=== PATIENT | male | born 1970 | race Caucasian/White ===

== ENCOUNTER 2018-04-18 23:11 | Emergency (ER) | END 2018-04-19 01:46 | disposition home or self-care (01) ==

== ENCOUNTER 2019-04-23 11:21 | Inpatient (IN) | payer BC, OTHER ==
[~2019-04-23] VITALS: Ht 167.6 cm; Wt 99.4 kg
[~2019-04-23 11:21] MED LIST: HYDR-3672 PO
--- NOTE | 2019-04-23 11:54 | ERD ---
ER Documentation Chief Complaint Chief Complaint ABDOMINAL PAIN HPI The patient is a 48-year-old male, presenting to the ER because of sudden onset of left flank pain radiating to the left sided abdomen began around 4 AM, denies similar symptoms previously, complains of vomiting of mostly mucus, denies hematemesis/hematochezia around 8 AM, denies fever, chills, neck pain, chest pain, dyspnea, complains of painful urination since 4 AM, complains of constipation. He does not smoke nor drink or does illicit drug Past medical history: Hypertension Past surgical history: Appendectomy ROS All systems reviewed and are negative except as per history of present illness. Medications Home Meds Discontinued Scripts Hydralazine Hcl* (Hydralazine Hcl*) 50 Mg Tab, 50 MG PO Q6H PRN for ELEVATED SYSTOLIC BP, #60 TAB Prov:MILLY ZIMMERSelvin 04/19/18 Allergies Allergies: Coded Allergies: No Known Allergy (Unverified , 04/23/19) PMhx/Soc Hx Cardiac Disorders: Yes (HTN) Hx Alcohol Use: Yes Hx Substance Use: No Hx Tobacco Use: No Physical Exam Vitals Vital Signs Date Temp Pulse Resp B/P (MAP) Pulse Ox O2 O2 Flow FiO2 Time Delivery Rate 04/23/19 98.4 65 20 189/102 98 Room Air 13:22 (131) 04/23/19 98.4 73 20 218/128 99 Room Air 12:16 (158) 04/23/19 98.4 74 20 247/127 99 11:33 (167) Physical Exam Const: No acute distress. Head: Atraumatic. Eyes: Normal Conjunctiva. ENT: Normal External Ears, Nose and Mouth. Neck: Full range of motion. No meningismus. Resp: Clear to auscultation bilaterally. Cardio: Regular rate and rhythm. Abd: Soft, non distended, normal bowel sounds, mild left flank/left lower quadrant tenderness. No rigidity/rebound/CVA tenderness Skin: No petechiae or rashes. Back: No midline or flank tenderness. Ext: No cyanosis, or edema. Neur: Awake and alert. No focal deficit Psych: Normal Mood and Affect. Result Diagram: 04/23/19 1205 04/23/19 1205 Results 24 hrs Laboratory Tests Test 04/23/19 12:05 04/23/19 12:51 White Blood Count 14.0 10^3/ul Red Blood Count 4.83 10^6/ul Hemoglobin 14.5 g/dl Hematocrit 41.8 % Mean Corpuscular Volume 86.5 fl Mean Corpuscular Hemoglobin 30.0 pg Mean Corpuscular Hemoglobin Concent 34.7 g/dl Red Cell Distribution Width 12.5 % Platelet Count 268 10^3/UL Mean Platelet Volume 10.3 fl Immature Granulocytes % 0.500 % Neutrophils % 82.5 % Lymphocytes % 11.9 % Monocytes % 4.7 % Eosinophils % 0.2 % Basophils % 0.2 % Nucleated Red Blood Cells % 0.0 /100WBC Immature Granulocytes # 0.070 10^3/ul Neutrophils # 11.5 10^3/ul Lymphocytes # 1.7 10^3/ul Monocytes # 0.7 10^3/ul Eosinophils # 0.0 10^3/ul Basophils # 0.0 10^3/ul Nucleated Red Blood Cells # 0.0 10^3/ul Sodium Level 143 mmol/L Potassium Level 4.1 mmol/L Chloride Level 105 mmol/L Carbon Dioxide Level 27 mmol/L Anion Gap 11 Blood Urea Nitrogen 19 mg/dl Creatinine 1.40 mg/dl Est Glomerular Filtrat Rate mL/min 54 mL/min Glucose Level 138 mg/dl Calcium Level 9.1 mg/dl Total Bilirubin 0.3 mg/dl Direct Bilirubin 0.00 mg/dl Indirect Bilirubin 0.3 mg/dl Aspartate Amino Transf (AST/SGOT) 32 IU/L Alanine Aminotransferase (ALT/SGPT) 33 IU/L Alkaline Phosphatase 93 IU/L Total Protein 8.3 g/dl Albumin 4.7 g/dl Globulin 3.60 g/dl Albumin/Globulin Ratio 1.30 Lipase 69 U/L Bedside Urine pH (LAB) 7.0 Bedside Urine Protein (LAB) 1+ Bedside Urine Glucose (UA) 0.1% Bedside Urine Ketones (LAB) Negative Bedside Urine Blood 2+ Bedside Urine Nitrite (LAB) Negative Bedside Urine Leukocyte Esterase (L Negative Current Medications Medications Dose Sig/Misael Start Time Status Last (Trade) Ordered Route PRN Stop Time Admin Dose Reason Admin Ondansetron 4 mg ONCE STAT 04/23/19 DC 04/23/19 HCl (Zofran IV 12:01 12:12 Inj) 04/23/19 12:04 Morphine 4 mg ONCE STAT 04/23/19 DC 04/23/19 Sulfate IV 12:01 12:15 (morphine) 04/23/19 12:04 Ketorolac 30 mg ONCE STAT 04/23/19 DC Tromethamine IV 12:53 (Toradol) 04/23/19 13:00 Morphine 4 mg ONCE STAT 04/23/19 DC 04/23/19 Sulfate IV 12:54 13:00 (morphine) 04/23/19 12:55 Labetalol 10 mg ONCE ONCE 04/23/19 DC 04/23/19 HCl IV 13:30 13:35 (Labetalol) 04/23/19 13:31 Procedures/[place] [address] Radiology Main Line: [phone] DIAGNOSTIC IMAGING REPORT Patient: ANDREW PANDYA : 1970 Age: 48 Sex: M MR #: [id number] DOS: 04/23/19 1201 Ordering MD: JOSE LUIS EMMANUEL MD Location: E/R Room/Bed: PROCEDURE: CT ABDOMEN AND PELVIS WITHOUT CONTRAST. CLINICAL INDICATION: Left-sided flank pain TECHNIQUE: CT scan of the abdomen and pelvis without contrast was performed on a multidetector high-resolution CT scanner. The patient was scanned without intravenous contrast. Coronal and sagittal reformatted images were obtained from the axial source images. Images were reviewed on a high-resolution PACS workstation. The total exam CTDI equals 19.7 mGy and the total exam DLP equals 1221.2 mGy-cm. One or more of the following dose reduction techniques were used: Automated exposure control. Adjustment of the mA and/or kV according to patient size. Use of iterative reconstruction technique. DICOM images are available COMPARISON: None FINDINGS: CT abdomen: The lung bases are clear. The heart size is within normal limits. There is no significant pericardial effusion. Hepatic morphology is within normal limits. No gross contour deforming masses. The gallbladder is within normal limits. No evidence of intrahepatic or extrahepatic biliary dilatation. The spleen and pancreas are within normal limits. Both adrenal glands are within normal limits. Both kidneys are in anatomic position. The left kidney is enlarged and there is left-sided hydroureteronephrosis, secondary to a large 7.2 mm stone within left UVJ. Left perinephric fat stranding noted. Punctate additional nonobstructing stones are noted with left kidney. Several nonobstructing stones are noted within the right kidney, with the largest measuring up to 4.6 mm. No right-sided ureteric calculi or obstructive uropathy. The visualized GI tract demonstrate normal caliber loops of small and large bowel. No evidence of bowel obstruction. Stool filled loops of large bowel suggestive of constipation. The unenhanced aorta is unremarkable. No significant retroperitoneal lymphaden opathy. CT pelvis: The bladder is within normal limits. Prostate gland is normal size. Rectosigmoid colon demonstrates stool. No significant free fluid. No pelvic lymphadenopathy. The visualized osseous structures appears to be within normal limits. IMPRESSION: 1. ENLARGED LEFT KIDNEY WITH LEFT-SIDED MILD TO MODERATE HYDROURETERONEPHROSIS, SECONDARY TO A LARGE 7.2 MM STONE WITHIN THE LEFT UVJ. THERE IS ASSOCIATED LEFT PERINEPHRIC FATTY STRANDING. Several additional punctate nonobstructing stones are noted within left kidney. 2. Several right-sided nonobstructing renal stones, with the largest measuring up to 4.6 mm. No evidence of right-sided obstructive uropathy. 3. No evidence of bowel obstruction. Stool filled loops of large bowel suggestive of constipation. 4. No evidence of free fluid or free air. No gross focal fluid collections. RPTAT: AAPP Physician Bell Date Time Electronically viewed and signed by Physician Bell on 04/23/2019 12:57 JL/ CC: JOSE LUIS EMMANUEL MD [id number] [place] [id number] Radiology Main Line: [phone] DIAGNOSTIC IMAGING REPORT Patient: ANDREW PANDYA : 1970 Age: 48 Sex: M MR #: [id number] DOS: 04/23/19 1201 Ordering MD: JOSE LUIS EMMANUEL MD Location: E/R Room/Bed: PROCEDURE: XR Chest. CLINICAL INDICATION: Abdominal Pain TECHNIQUE: PA and Lateral views of the chest were obtained. COMPARISON: None. FINDINGS: The cardiomediastinal silhouette is within normal limits. The lungs are clear. No signs of pleural fluid or pneumothorax are seen. The osseous structures and soft tissues are unremarkable. IMPRESSION: No evidence for active cardiopulmonary disease. Physician Shanell Date Time Electronically viewed and signed by Ivone Dial Physician on 04/23/2019 12:45 RD/ CC: JOSE LUIS EMMANUEL MD [id number] EKG: Read by emergency physician Rate/Rhythm: Normal Sinus Rhythm 74 beats/min QRS, ST, T-waves: No ST elevation, no T inversion, LVH, inferolateral ST abnormality Impression: Abnormal EKG Urine culture requested Consultation: I discussed the patient with the on-call urologist Dr. Cage at 1:10 PM, who was made aware of the lab, the treatment, the patient condition and he accepted the consult MEDICAL MAKING DECISION: The patient is a 48-year-old male with left ureteral lithiasis with moderate left hydroureteronephrosis, acute hypertensive urgency. He was treated with morphine 4 mg IV times 2, Toradol 30 mg IV for pain, Zofran 4 mg IV for nausea, labetalol 10 mg IV for acute hypertensive urgency with good response. The differential diagnoses considered include but are not limited to cholelithiasis, cholecystitis, choledocholithiasis, cholangitis, pancreatitis, hepatitis, gastritis, peptic ulcer disease, gastric ulcer, appendicitis, cystitis, diverticulitis, partial small bowel obstruction. Departure Diagnosis: Primary Impression: Ureterolithiasis Additional Impressions: Hydroureteronephrosis Hypertensive urgency Renal insufficiency Condition: Stable Comments I discussed the findings with the patient. I discussed the patient with the hospitalist, who was made aware of the lab, the treatment, the patient condition. The patient is admitted to [facility] Disclaimer: Inadvertent spelling and grammatical errors are likely due to EHR/dictation software use and do not reflect on the overall quality of patient care. Also, please note that the electronic time recorded on this note does not necessarily reflect the actual time of the patient encounter. JOSE LUIS EMMANUEL MD Apr 23, 2019 11:54
[2019-04-23] MEDS ORDERED: morphine 4 MG/ML VIAL IV STA ×2 (12:01→12:54)
[2019-04-23] MEDS ORDERED: ONDANSETRON 4 MG INJ IV STA (12:01)
[2019-04-23] MEDS ORDERED: KETOROLAC 30 MG INJ IV STA (12:53)
[2019-04-23] MEDS ORDERED: LABETALOL HCL 20MG INJ IV ONE (13:30)
[2019-04-23] MEDS ORDERED: morphine 2 MG INJ IV PRN (14:30)
[2019-04-23] MEDS ORDERED: MAGNESIUM HYDROXIDE 30ML CUP PO PRN (14:30)
[2019-04-23] MEDS ORDERED: ACETAMINOPHEN 325 MG TAB PO PRN (14:30)
[2019-04-23] MEDS ORDERED: ACETAMINOPHEN 650 MG SUPP PR PRN (14:30)
[2019-04-23] MEDS ORDERED: DOCUSATE SODIUM 100 MG CAP PO PRN (14:30)
[2019-04-23] MEDS ORDERED: NACL 0.9% 3 ML SYG IV SCH (14:30)
[2019-04-23] MEDS ORDERED: BISACODYL 10 MG SUPP PR PRN (14:30)
[2019-04-23] MEDS ORDERED: HYDROCODONE/APAP (5/325) TAB PO PRN (14:30)
[2019-04-23] MEDS ORDERED: hydrALAzine 20 MG INJ ONE (15:43)
[2019-04-23] MEDS: hydrALAzine 20 MG INJ IV PRN (15:45)
--- NOTE | 2019-04-23 16:16 | HP ---
Date/Time of Note Date/Time of Note DATE: 04/23/19 TIME: 16:09 Assessment/Plan VTE Prophylaxis SCD applied (from Nsg): Yes Pharmacological prophylaxis: NA/contraindicated Pharm contraindication: low risk/ambulating Lines/Catheters IV Catheter Type (from Nrsg): Saline Lock Assessment/Plan Hospital Course Assessment and plan 1. Enlarged left renal stone with moderate hydroureteronephrosis. Urology is consulted. Continue with analgesics. On IV hydration. Monitor renal panel. 2. Acute on suspect chronic kidney disease. Likely secondary to #1. Route Aide consulted. Monitor renal panel. Correct electrolytes as needed. 3. Hypertension. Will start patient on antihypertensives. Likely also aggravated by pain from a large renal stone. Provide with analgesics as needed. 4. Obesity. Weight reduction to be advised Discussed POC with Dr. Olivas Result Diagram: 04/23/19 1205 04/23/19 1205 Results 24hrs Laboratory Tests Test 04/23/19 12:05 04/23/19 12:51 White Blood Count 14.0 #H Red Blood Count 4.83 Hemoglobin 14.5 Hematocrit 41.8 L Mean Corpuscular Volume 86.5 Mean Corpuscular Hemoglobin 30.0 Mean Corpuscular Hemoglobin Concent 34.7 Red Cell Distribution Width 12.5 Platelet Count 268 Mean Platelet Volume 10.3 Immature Granulocytes % 0.500 H Neutrophils % 82.5 H Lymphocytes % 11.9 L Monocytes % 4.7 Eosinophils % 0.2 Basophils % 0.2 Nucleated Red Blood Cells % 0.0 Immature Granulocytes # 0.070 H Neutrophils # 11.5 H Lymphocytes # 1.7 Monocytes # 0.7 Eosinophils # 0.0 Basophils # 0.0 Nucleated Red Blood Cells # 0.0 Sodium Level 143 Potassium Level 4.1 Chloride Level 105 Carbon Dioxide Level 27 Anion Gap 11 Blood Urea Nitrogen 19 Creatinine 1.40 H Est Glomerular Filtrat Rate mL/min 54 L Glucose Level 138 Calcium Level 9.1 Total Bilirubin 0.3 Direct Bilirubin 0.00 Indirect Bilirubin 0.3 Aspartate Amino Transf (AST/SGOT) 32 Alanine Aminotransferase (ALT/SGPT) 33 Alkaline Phosphatase 93 Total Protein 8.3 H Albumin 4.7 Globulin 3.60 H Albumin/Globulin Ratio 1.30 Lipase 69 Bedside Urine pH (LAB) 7.0 Bedside Urine Protein (LAB) 1+ H Bedside Urine Glucose (UA) 0.1% H Bedside Urine Ketones (LAB) Negative Bedside Urine Blood 2+ H Bedside Urine Nitrite (LAB) Negative Bedside Urine Leukocyte Esterase (L Negative HPI/ROS Admit Date/Time Admit Date/Time Apr 23, 2019 at 14:02 Hx of Present Illness This is a 48-year-old male with only reported past medical history of appendectomy, hypertension, came to [facility] due to reports of increased left flank pain. Patient reports that he started to have left flank pain starting this morning. He reports also having some associated dysuria. She reports the pain is on the left flank and radiates to his front pelvic area. He did come to the hospital for further evaluation. On examination he had a white count of 14.0. Urinalysis was not very suggestive of UTI. Did have abdominal pelvic imaging that did show and have enlarged left ki dney with left-sided mild to moderate hydroureteronephrosis secondary to large 7.2 mm stone within the left UVJ. There is also associated left perinephric fatty stranding. Patient denies any fevers. He does report however he has been having urinary frequency for a long time (exact duration unknown). Reports he only takes medication at home for his hypertension and to his knowledge the only known medical issue he has is hypertension. Of note his creatinine was also seen elevated at 1.4. We will evaluate him for the aformentiond issues. ROS 12 point review of systems obtained entirely negative except as mentioned in the history of present illness PMH/Family/Social Past Medical History Medical/surgical history 1. Appendectomy 2. Hypertension Medications Current Medications Sodium Chloride 1,000 ml @ 80 mls/hr [id number] IV ; Start 04/23/19 at 14:29 IV Flush (NS 3 ml) 3 ml PER PROTOCOL IV ; Start 04/23/19 at 14:30 Ondansetron HCl (Zofran Inj) 4 mg Q6H PRN IV NAUSEA/VOMITING; Start 04/23/19 at 14:30 Acetaminophen (Tylenol Tab) 650 mg Q6H PRN PO .PAIN 1-3 OR TEMP; Start 04/23/19 at 14:30 Acetaminophen (Tylenol Supp) 650 mg Q6H PRN [place] .PAIN 1-3 OR TEMP; Start 04/23/19 at 14:30 Acetaminophen/ Hydrocodone Bitart ([place] (5/325)) 1 tab Q6H PRN PO .MOD PAIN 4- 6; Start 04/23/19 at 14:30 Morphine Sulfate (morphine) 2 mg Q4H PRN IV .SEVERE PAIN 7-10; Start 04/23/19 at 14:30 Docusate Sodium (Colace) 100 mg Q12H PRN PO .CONSTIPATION; Start 04/23/19 at 14:30 Magnesium Hydroxide (Milk Of Mag) 30 ml DAILY PRN PO .CONSTIPATION; Start 04/23/19 at 14:30 Bisacodyl (Dulcolax Supp) 10 mg DAILY PRN [place] .CONSTIPATION; Start 04/23/19 at 14:30 Famotidine (Pepcid Iv) 20 mg DAILY IV ; Start 04/23/19 at 15:00 Hydralazine HCl (Apresoline) 10 mg Q4H PRN IV sbp>160 Last administered on 04/23/19at 15:45; Admin Dose 10 MG; Start 04/23/19 at 14:30 Hydromorphone HCl (Dilaudid) 1 mg Q3H PRN IV SEVERE PAIN LEVEL 7-10; Start 04/23/19 at 16:30; Status UNV Coded Allergies: No Known Allergy (Unverified , 04/23/19) Family History Significant Family History: no pertinent family hx Social History Alcohol Use: none Smoking Status: Never smoker Drug Use: none Exam/Review of Systems Vital Signs Vitals Vital Signs Date Temp Pulse Resp B/P (MAP) Pulse Ox O2 O2 Flow FiO2 Time Delivery Rate 04/23/19 58 16 173/97 96 Room Air 15:20 (122) 04/23/19 98.4 13:22 Exam Constitutional: alert, oriented Head: normocephalic Neck: supple, non-tender Respiratory: clear to auscultation Cardiovascular: regular rate and rhythm Gastrointestinal: soft, tender (left flank) Neurological: PRACTICE ASSISTANT II-XII intact, nl mental status, nl speech REGIDORJUDI NP Apr 23, 2019 16:16
[2019-04-23] MEDS ORDERED: ONDANSETRON 4 MG INJ ONE (17:01)
[2019-04-23] MEDS ORDERED: HYDROmorphONE 1 MG/ML SYG ONE (17:02)
[2019-04-23] MEDS: HYDROmorphONE 1 MG/ML SYG IV PRN (17:02)
[2019-04-23] MEDS: ONDANSETRON 4 MG INJ IV PRN (17:02)
[2019-04-23 18:09] VITALS: BP 180/96; PULSE 70; RESP 18; Ht 167.6 cm; Wt 99.4 kg
[2019-04-23 18:18] VITALS: BP 170/93; PULSE 68
[2019-04-23] MEDS: SOD CHLORIDE 0.9% 1,000 ML IV SCH (18:32)
[2019-04-23] MEDS: FAMOTIDINE 20 MG INJ IV SCH (18:33)
--- NOTE | 2019-04-23 18:38 | CONS ---
Assessment/Plan Assessment/Plan Hospital Course (Demo Recall) 48-year-old male presented to the emergency room with severe left flank pain with nausea and vomiting. He also had constant urge to urinate and urinate small amount. He underwent a CT scan of the abdomen and pelvis and that showed a 7.2 mm stone within the left ureterovesical junction. Denies any prior history of kidney stones. There is no fever or chills and no gross hematuria. Since the stone is just at the ureterovesical junction we will give him the chance and see if he is able to pass it. Strain the urine, give him pain medications and tamsulosin and do a KUB so we could follow the movement of the stone. If his pain persist and he does not pass it and he continues to have pain we could do cystoscopy and left ureteroscopy and laser lithotripsy and inserted JJ stent. Consultation Date/Type/Reason Admit Date/Time Apr 23, 2019 at 14:02 Date of Consultation: Apr 23, 2019 Type of Consult Urology Reason for Consultation Distal left ureteral stone Requesting Provider: JOSE LUIS EMMANUEL MD Date/Time of Note DATE: 04/23/19 TIME: 18:29 Hx of Present Illness 48-year-old male presented to the emergency room with severe left flank pain with nausea and vomiting. He also had constant urge to urinate and urinate small amount. He underwent a CT scan of the abdomen and pelvis and that showed a 7.2 mm stone within the left ureterovesical junction. Denies any prior history of kidney stones. There is no fever or chills and no gross hematuria. Constitutional: no complaints Eyes: no complaints ENT: no complaints Respiratory: no complaints; No shortness of breath Cardiovascular: no complaints; No chest pain Gastrointestinal: pain (Left lower quadrant), nausea Genitourinary: flank pain (Left side) Musculoskeletal: no complaints Skin: no complaints Neurologic: no complaints Endocrine: no complaints Lymphatic: no complaints Past Medical History Medical History: high cholesterol, hypertension Home Meds Discontinued Scripts Hydralazine Hcl* (Hydralazine Hcl*) 50 Mg Tab, 50 MG PO Q6H PRN for ELEVATED SYSTOLIC BP, #60 TAB Prov:MILLY ZIMMER 04/19/18 Medications Current Medications Sodium Chloride 1,000 ml @ 80 mls/hr [id number] IV ; Start 04/23/19 at 14:29 IV Flush (NS 3 ml) 3 ml PER PROTOCOL IV ; Start 04/23/19 at 14:30 Ondansetron HCl (Zofran Inj) 4 mg Q6H PRN IV NAUSEA/VOMITING Last administered on 04/23/19at 17:02; Admin Dose 4 MG; Start 04/23/19 at 14:30 Acetaminophen (Tylenol Tab) 650 mg Q6H PRN PO .PAIN 1-3 OR TEMP; Start 04/23/19 at 14:30 Acetaminophen (Tylenol Supp) 650 mg Q6H PRN [place] .PAIN 1-3 OR TEMP; Start 04/23/19 at 14:30 Acetaminophen/ Hydrocodone Bitart ([place] (5/325)) 1 tab Q6H PRN PO .MOD PAIN 4- 6; Start 04/23/19 at 14:30 Morphine Sulfate (morphine) 2 mg Q4H PRN IV .SEVERE PAIN 7-10; Start 04/23/19 at 14:30 Docusate Sodium (Colace) 100 mg Q12H PRN PO .CONSTIPATION; Start 04/23/19 at 14:30 Magnesium Hydroxide (Milk Of Mag) 30 ml DAILY PRN PO .CONSTIPATION; Start 04/23/19 at 14:30 Bisacodyl (Dulcolax Supp) 10 mg DAILY PRN [place] .CONSTIPATION; Start 04/23/19 at 14:30 Famotidine (Pepcid Iv) 20 mg DAILY IV ; Start 04/23/19 at 15:00 Hydralazine HCl (Apresoline) 10 mg Q4H PRN IV sbp>160 Last administered on 04/23/19at 15:45; Admin Dose 10 MG; Start 04/23/19 at 14:30 Hydromorphone HCl (Dilaudid) 1 mg Q3H PRN IV SEVERE PAIN LEVEL 7-10 Last administered on 04/23/19at 17:02; Admin Dose 1 MG; Start 04/23/19 at 16:30 Amlodipine Besylate (Norvasc) 5 mg BID PO ; Start 04/23/19 at 21:00 Clonidine (Catapres) 0.1 mg Q4H PRN PO sbp>160 Last administered on 04/23/19at 16:59; Admin Dose 0.1 MG; Start 04/23/19 at 16:30 Tamsulosin HCl (Flomax) 0.4 mg HS PO ; Start 04/23/19 at 21:00 Allergies: Coded Allergies: No Known Allergy (Unverified , 04/23/19) Past Surgical History Past Surgical Hx: appendectomy, other (History of fracture penis) Social History Alcohol Use: none Smoking Status: Never smoker Drug Use: none Exam/Review of Systems Exam Vitals Vital Signs Date Temp Pulse Resp B/P (MAP) Pulse Ox O2 O2 Flow FiO2 Time Delivery Rate 04/23/19 68 170/93 18:18 (118) 04/23/19 98.2 18 97 Room Air 18:09 Constitutional: alert, oriented Psych: no complaints Head: normocephalic Eyes: nl conjunctiva ENMT: nl external ears & nose Neck: supple, non-tender Respiratory: normal air movement; No wheezing Cardiovascular: regular rate and rhythm Gastrointestinal: soft, tender (Left lower quadrant) Genitourinary - Male: nl penis, nl scrotum, CVA tenderness (Left side) Extremities: No calf tenderness Neurological: nl mental status Results Result Diagram: 04/23/19 1205 04/23/19 1205 Results 24hrs Laboratory Tests Test 04/23/19 12:05 04/23/19 12:51 White Blood Count 14.0 #H Red Blood Count 4.83 Hemoglobin 14.5 Hematocrit 41.8 L Mean Corpuscular Volume 86.5 Mean Corpuscular Hemoglobin 30.0 Mean Corpuscular Hemoglobin Concent 34.7 Red Cell Distribution Width 12.5 Platelet Count 268 Mean Platelet Volume 10.3 Immature Granulocytes % 0.500 H Neutrophils % 82.5 H Lymphocytes % 11.9 L Monocytes % 4.7 Eosinophils % 0.2 Basophils % 0.2 Nucleated Red Blood Cells % 0.0 Immature Granulocytes # 0.070 H Neutrophils # 11.5 H Lymphocytes # 1.7 Monocytes # 0.7 Eosinophils # 0.0 Basophils # 0.0 Nucleated Red Blood Cells # 0.0 Sodium Level 143 Potassium Level 4.1 Chloride Level 105 Carbon Dioxide Level 27 Anion Gap 11 Blood Urea Nitrogen 19 Creatinine 1.40 H Est Glomerular Filtrat Rate mL/min 54 L Glucose Level 138 Calcium Level 9.1 Total Bilirubin 0.3 Direct Bilirubin 0.00 Indirect Bilirubin 0.3 Aspartate Amino Transf (AST/SGOT) 32 Alanine Aminotransferase (ALT/SGPT) 33 Alkaline Phosphatase 93 Total Protein 8.3 H Albumin 4.7 Globulin 3.60 H Albumin/Globulin Ratio 1.30 Lipase 69 Bedside Urine pH (LAB) 7.0 Bedside Urine Protein (LAB) 1+ H Bedside Urine Glucose (UA) 0.1% H Bedside Urine Ketones (LAB) Negative Bedside Urine Blood 2+ H Bedside Urine Nitrite (LAB) Negative Bedside Urine Leukocyte Esterase (L Negative Imaging Imaging CT scan of the abdomen and pelvis: 1. ENLARGED LEFT KIDNEY WITH LEFT-SIDED MILD TO MODERATE HYDROURETERONEPHROSIS, SECONDARY TO A LARGE 7.2 MM STONE WITHIN THE LEFT UVJ. THERE IS ASSOCIATED LEFT PERINEPHRIC FATTY STRANDING. Several additional punctate nonobstructing stones are noted within left kidney. 2. Several right-sided nonobstructing renal stones, with the largest measuring up to 4.6 mm. No evidence of right-sided obstructive uropathy. 3. No evidence of bowel obstruction. Stool filled loops of large bowel suggestive of constipation. 4. No evidence of free fluid or free air. No gross focal fluid collections. Medications Medication Current Medications Sodium Chloride 1,000 ml @ 80 mls/hr [id number] IV ; Start 04/23/19 at 14:29 IV Flush (NS 3 ml) 3 ml PER PROTOCOL IV ; Start 04/23/19 at 14:30 Ondansetron HCl (Zofran Inj) 4 mg Q6H PRN IV NAUSEA/VOMITING Last administered on 04/23/19at 17:02; Admin Dose 4 MG; Start 04/23/19 at 14:30 Acetaminophen (Tylenol Tab) 650 mg Q6H PRN PO .PAIN 1-3 OR TEMP; Start 04/23/19 at 14:30 Acetaminophen (Tylenol Supp) 650 mg Q6H PRN [place] .PAIN 1-3 OR TEMP; Start 04/23/19 at 14:30 Acetaminophen/ Hydrocodone Bitart ([place] (5/325)) 1 tab Q6H PRN PO .MOD PAIN 4- 6; Start 04/23/19 at 14:30 Morphine Sulfate (morphine) 2 mg Q4H PRN IV .SEVERE PAIN 7-10; Start 04/23/19 at 14:30 Docusate Sodium (Colace) 100 mg Q12H PRN PO .CONSTIPATION; Start 04/23/19 at 14:30 Magnesium Hydroxide (Milk Of Mag) 30 ml DAILY PRN PO .CONSTIPATION; Start 04/23/19 at 14:30 Bisacodyl (Dulcolax Supp) 10 mg DAILY PRN [place] .CONSTIPATION; Start 04/23/19 at 14:30 Famotidine (Pepcid Iv) 20 mg DAILY IV ; Start 04/23/19 at 15:00 Hydralazine HCl (Apresoline) 10 mg Q4H PRN IV sbp>160 Last administered on 04/23at 15:45; Admin Dose 10 MG; Start 04/23/19 at 14:30 Hydromorphone HCl (Dilaudid) 1 mg Q3H PRN IV SEVERE PAIN LEVEL 7-10 Last administered on 04/23/19at 17:02; Admin Dose 1 MG; Start 04/23/19 at 16:30 Amlodipine Besylate (Norvasc) 5 mg BID PO ; Start 04/23/19 at 21:00 Clonidine (Catapres) 0.1 mg Q4H PRN PO sbp>160 Last administered on 04/23/19at 16:59; Admin Dose 0.1 MG; Start 04/23/19 at 16:30 Tamsulosin HCl (Flomax) 0.4 mg HS PO ; Start 04/23/19 at 21:00 VENANCIO HILL MD Apr 23, 2019 18:38
[2019-04-23] MEDS ORDERED: CEFTRIAXONE 1 GM INJ IVPB SCH (19:30)
[2019-04-23 20:00] VITALS: BP 177/98; PULSE 70; RESP 18
[2019-04-23] MEDS: CEFTRIAXONE 1 GM/NS 50 ML IVPB SCH (20:07)
[2019-04-23] MEDS: TAMSULOSIN (SR) 0.4 MG CAP PO SCH (20:07)
[2019-04-23] MEDS: AMLODIPINE 5 MG TAB PO SCH (20:08)
[2019-04-23 21:27] VITALS: BP 160/91
[2019-04-24] VITALS (10 sets, daily range): BP systolic 128–203; BP diastolic 68–113; PULSE 63–85; RESP 16–20
[2019-04-24] MEDS: HYDROmorphONE 1 MG/ML SYG IV PRN ×2 (01:54→13:42)
[2019-04-24] MEDS: SOD CHLORIDE 0.9% 1,000 ML IV SCH ×3 (02:40→19:43)
--- NOTE | 2019-04-24 07:14 | CONS ---
Consultation Date/Type/Reason Admit Date/Time Apr 23, 2019 at 14:02 Date/Time of Note DATE: 04/24/19 TIME: 07:12 Hx of Present Illness interviewed patient and full note to follow Past Medical History Medical History: high cholesterol, hypertension Home Meds Discontinued Scripts Hydralazine Hcl* (Hydralazine Hcl*) 50 Mg Tab, 50 MG PO Q6H PRN for ELEVATED SYSTOLIC BP, #60 TAB Prov:MILLY ZIMMERSelvin 04/19/18 Medications Current Medications Sodium Chloride 1,000 ml @ 80 mls/hr [id number] IV Last administered on 04/24/19at 06:07; Admin Dose 80 MLS/HR; Start 04/23/19 at 14:29 IV Flush (NS 3 ml) 3 ml PER PROTOCOL IV ; Start 04/23/19 at 14:30 Ondansetron HCl (Zofran Inj) 4 mg Q6H PRN IV NAUSEA/VOMITING Last administered on 04/23/19at 17:02; Admin Dose 4 MG; Start 04/23/19 at 14:30 Acetaminophen (Tylenol Tab) 650 mg Q6H PRN PO .PAIN 1-3 OR TEMP; Start 04/23/19 at 14:30 Acetaminophen (Tylenol Supp) 650 mg Q6H PRN [place] .PAIN 1-3 OR TEMP; Start 04/23/19 at 14:30 Acetaminophen/ Hydrocodone Bitart ([place] (5/325)) 1 tab Q6H PRN PO .MOD PAIN 4- 6; Start 04/23/19 at 14:30 Morphine Sulfate (morphine) 2 mg Q4H PRN IV .SEVERE PAIN 7-10; Start 04/23/19 at 14:30 Docusate Sodium (Colace) 100 mg Q12H PRN PO .CONSTIPATION; Start 04/23/19 at 14:30 Magnesium Hydroxide (Milk Of Mag) 30 ml DAILY PRN PO .CONSTIPATION; Start 04/23/19 at 14:30 Bisacodyl (Dulcolax Supp) 10 mg DAILY PRN [place] .CONSTIPATION; Start 04/23/19 at 1 4:30 Famotidine (Pepcid Iv) 20 mg DAILY IV Last administered on 04/23/19at 18:33; Admin Dose 20 MG; Start 04/23/19 at 15:00 Hydralazine HCl (Apresoline) 10 mg Q4H PRN IV sbp>160 Last administered on 04/23/19at 15:45; Admin Dose 10 MG; Start 04/23/19 at 14:30 Hydromorphone HCl (Dilaudid) 1 mg Q3H PRN IV SEVERE PAIN LEVEL 7-10 Last administered on 04/24/19 01:54; Admin Dose 1 MG; Start 04/23/19 at 16:30 Amlodipine Besylate (Norvasc) 5 mg BID PO Last administered on 04/23/19at 20:08; Admin Dose 5 MG; Start 04/23/19 at 21:00 Clonidine (Catapres) 0.1 mg Q4H PRN PO sbp>160 Last administered on 04/23/19 16:59; Admin Dose 0.1 MG; Start 04/23/19 at 16:30 Tamsulosin HCl (Flomax) 0.4 mg HS PO Last administered on 04/23/19at 20:07; Admin Dose 0.4 MG; Start 04/23/19 at 21:00 Ceftriaxone Sodium 50 ml @ 100 mls/hr Q24H IVPB Last administered on 04/23/19 20:07; Admin Dose 100 MLS/HR; Start 04/23/19 at 20:00 Allergies: Coded Allergies: No Known Allergy (Unverified , 04/23/19) Past Surgical History Past Surgical Hx: appendectomy, other (History of fracture penis) Social History Alcohol Use: none Smoking Status: Never smoker Drug Use: none Exam/Review of Systems Exam Vitals Vital Signs Date Temp Pulse Resp B/P (MAP) Pulse Ox O2 O2 Flow FiO2 Time Delivery Rate 04/24/19 97.8 63 18 128/68 96 02:00 (88) 04/23/19 Room Air 18:09 Intake and Output 04/23/19 04/23/19 04/24/19 1515:00 23:00 07:00 IntakeIntake Total 250 ml 1000 ml OutputOutput Total 150 ml 1100 ml BalanceBalance 100 ml -100 ml Results Result Diagram: 04/24/19 0500 04/24/19 0500 Results 24hrs Laboratory Tests Test 04/23/19 12:05 04/23/19 12:51 04/23/19 19:05 04/24/19 05:00 White Blood Count 14.0 #H 10.5 # Red Blood Count 4.83 4.10 L Hemoglobin 14.5 12.1 L Hematocrit 41.8 L 35.8 L Mean Corpuscular 86.5 87.3 Volume Mean Corpuscular 30.0 29.5 Hemoglobin Mean Corpuscular 34.7 33.8 Hemoglobin Concent Red Cell 12.5 12.7 Distribution Width Platelet Count 268 223 Mean Platelet Volume 10.3 10.7 H Immature 0.500 H 0.400 Granulocytes % Neutrophils % 82.5 H 66.6 Lymphocytes % 11.9 L 23.2 Monocytes % 4.7 9.3 Eosinophils % 0.2 0.3 Basophils % 0.2 0.2 Nucleated Red Blood 0.0 0.0 Cells % Immature 0.070 H 0.040 H Granulocytes # Neutrophils # 11.5 H 7.0 Lymphocytes # 1.7 2.4 Monocytes # 0.7 1.0 H Eosinophils # 0.0 0.0 Basophils # 0.0 0.0 Nucleated Red Blood 0.0 0.0 Cells # Sodium Level 143 138 Potassium Level 4.1 3.9 Chloride Level 105 102 Carbon Dioxide Level 27 26 Anion Gap 11 10 Blood Urea Nitrogen 19 25 H Creatinine 1.40 H 1.87 H Est Glomerular 54 L 39 L Filtrat Rate mL/min Glucose Level 138 102 Calcium Level 9.1 8.7 Total Bilirubin 0.3 0.5 Direct Bilirubin 0.00 0.00 Indirect Bilirubin 0.3 0.5 Aspartate Amino 32 25 Transf (AST/SGOT) Alanine 33 27 Aminotransferase (AL T/SGPT) Alkaline Phosphatase 93 58 Total Protein 8.3 H 6.3 # Albumin 4.7 3.7 # Globulin 3.60 H 2.60 Albumin/Globulin 1.30 1.42 Ratio Lipase 69 Bedside Urine pH 7.0 (LAB) Bedside Urine 1+ H Protein (LAB) Bedside Urine 0.1% H Glucose (UA) Bedside Urine Negative Ketones (LAB) Bedside Urine Blood 2+ H Bedside Urine Negative Nitrite (LAB) Bedside Urine Negative Leukocyte Esterase (L Prothrombin Time 11.7 L Prothrombin Time 0.9 Ratio INR International 0.85 Normalized Ratio Activated 28.0 Partial Thromboplast Time Hemoglobin A1c 5.7 Phosphorus Level 5.8 H Magnesium Level 2.1 Triglycerides Level 145 Cholesterol Level 169 LDL Cholesterol, 105 Calculated HDL Cholesterol 35 Cholesterol/HDL 4.8 Ratio Thyroid Stimulating Pending Hormone (TSH) Free Thyroxine Index 2.83 Thyroxine (T4) 9.0 Triiodothyronine 31.4 (T3) Uptake Medications Medication Current Medications Sodium Chloride 1,000 ml @ 80 mls/hr [id number] IV Last administered on 04/24/19at 06:07; Admin Dose 80 MLS/HR; Start 04/23/19 at 14:29 IV Flush (NS 3 ml) 3 ml PER PROTOCOL IV ; Start 04/23/19 at 14:30 Ondansetron HCl (Zofran Inj) 4 mg Q6H PRN IV NAUSEA/VOMITING Last administered on 04/23/19at 17:02; Admin Dose 4 MG; Start 04/23/19 at 14:30 Acetaminophen (Tylenol Tab) 650 mg Q6H PRN PO .PAIN 1-3 OR TEMP; Start 04/23/19 at 14:30 Acetaminophen (Tylenol Supp) 650 mg Q6H PRN [place] .PAIN 1-3 OR TEMP; Start 04/23/19 at 14:30 Acetaminophen/ Hydrocodone Bitart ([place] (5/325)) 1 tab Q6H PRN PO .MOD PAIN 4-6; Start 04/23/19 at 14:30 Morphine Sulfate (morphine) 2 mg Q4H PRN IV .SEVERE PAIN 7-10; Start 04/23/19 at 14:30 Docusate Sodium (Colace) 100 mg Q12H PRN PO .CONSTIPATION; Start 04/23/19 at 14:30 Magnesium Hydroxide (Milk Of Mag) 30 ml DAILY PRN PO .CONSTIPATION; Start 04/23/19 at 14:30 Bisacodyl (Dulcolax Supp) 10 mg DAILY PRN [place] .CONSTIPATION; Start 04/23/19 at 14:30 Famotidine (Pepcid Iv) 20 mg DAILY IV Last administered on 04/23/19at 18:33; Admin Dose 20 MG; Start 04/23/19 at 15:00 Hydralazine HCl (Apresoline) 10 mg Q4H PRN IV sbp>160 Last administered on 04/23/19at 15:45; Admin Dose 10 MG; Start 04/23/19 at 14:30 Hydromorphone HCl (Dilaudid) 1 mg Q3H PRN IV SEVERE PAIN LEVEL 7-10 Last administered on 04/24/19 01:54; Admin Dose 1 MG; Start 04/23/19 at 16:30 Amlodipine Besylate (Norvasc) 5 mg BID PO Last administered on 04/23/19 20:08; Admin Dose 5 MG; Start 04/23/19 at 21:00 Clonidine (Catapres) 0.1 mg Q4H PRN PO sbp>160 Last administered on 04/23/19 16:59; Admin Dose 0.1 MG; Start 04/23/19 at 16:30 Tamsulosin HCl (Flomax) 0.4 mg HS PO Last administered on 04/23/19 20:07; Admin Dose 0.4 MG; Start 04/23/19 at 21:00 Ceftriaxone Sodium 50 ml @ 100 mls/hr Q24H IVPB Last administered on 04/23/19 20:07; Admin Dose 100 MLS/HR; Start 04/23/19 at 20:00 SANNA TERRY Apr 24, 2019 07:14
--- NOTE | 2019-04-24 08:30 | EN ---
Date/Time of Note Date/Time of Note DATE: 04/24/19 TIME: 08:29 Event Note Medicine Medicine Event Note pt seen and examined. full consult note to be dictated. ELICIA AZUL DO Apr 24, 2019 08:30
--- NOTE | 2019-04-24 08:54 | CONS ---
Assessment/Plan Assessment/Plan Assessment/Plan (Daily) Renal colic secondary to 7.5 mm stone in the left renal ureter Pain secondary to the above Obesity Hypertension Hyperlipidemia Family history of nephrolithiasis Agree with current pain management including good hydration and analgesics. Further recommendations per urology Consultation Date/Type/Reason Admit Date/Time Apr 23, 2019 at 14:02 Date/Time of Note DATE: 04/24/19 TIME: 08:51 Hx of Present Illness I reviewed medical records and spoke to the patient's and patient at the bedside. Reviewed consultation from urology. Patient has had approximately 1 week history of increasing left flank pain which is now radiated down into his left testicle. There is no past medical history of renal disorders this is his first time he had a stone although he states that his brother has had kidney stones in the past describes his pain when he first came in as excruciating lancinating discomfort in his left flank. Not associated with any systemic disease symptoms of nausea vomiting fever chills cough shortness of breath. states he has not had any blood during urination. Patient has known past medical history of any other major medical problems with exception of hypertension. Only being treated with morphine and oral analgesics and [place] as needed for severe pain. Subjective hx not possible: other (Noncritical) Constitutional: No no complaints, No improved, No chills, No diaphoresis, No disoriented, No febrile, No poor po, No requiring IVF, No requiring O2, No other Eyes: No no complaints, No pain, No discharge, No redness, No visual change, No other ENT: No no complaints, No bleeding, No pain, No congestion, No discharge, No dysphagia, No sore throat, No other Respiratory: No no complaints, No pain, No cough, No pleuritic pain, No shortness of breath, No sputum, No wheezing, No other Cardiovascular: No no complaints, No chest pain, No edema, No lightheadedness, No orthopenea, No palpitations, No paroxysmal nocturnal dyspnea, No other Gastrointestinal: No no complaints, No pain, No blood, No constipation, No decreased appetite, No diarrhea, No flatus, No nausea, No passing stool, No vomiting, No other Genitourinary: other (As per history of present illness) Musculoskeletal: No no complaints, No back pain, No bone/joint pain, No neck pain, No restricted range of motion, No swelling, No other Neurologic: No no complaints, No confusion, No dizziness, No focal-weakness, No headache, No syncope, No seizure, No other Past Medical History Medical History: high cholesterol, hypertension Home Meds Discontinued Scripts Hydralazine Hcl* (Hydralazine Hcl*) 50 Mg Tab, 50 MG PO Q6H PRN for ELEVATED SYSTOLIC BP, #60 TAB Prov:MILLY ZIMMERSelvin 04/19/18 Medications Current Medications Sodium Chloride 1,000 ml @ 80 mls/hr [id number] IV Last administered on 04/24/19at 06:07; Admin Dose 80 MLS/HR; Start 04/23/19 at 14:29 IV Flush (NS 3 ml) 3 ml PER PROTOCOL IV ; Start 04/23/19 at 14:30 Ondansetron HCl (Zofran Inj) 4 mg Q6H PRN IV NAUSEA/VOMITING Last administered on 04/23/19at 17:02; Admin Dose 4 MG; Start 04/23/19 at 14:30 Acetaminophen (Tylenol Tab) 650 mg Q6H PRN PO .PAIN 1-3 OR TEMP; Start 04/23/19 at 14:30 Acetaminophen (Tylenol Supp) 650 mg Q6H PRN [place] .PAIN 1-3 OR TEMP; Start 04/23/19 at 14:30 Acetaminophen/ Hydrocodone Bitart ([place] (5/325)) 1 tab Q6H PRN PO .MOD PAIN 4- 6; Start 04/23/19 at 14:30 Docusate Sodium (Colace) 100 mg Q12H PRN PO .CONSTIPATION; Start 04/23/19 at 14:30 Magnesium Hydroxide (Milk Of Mag) 30 ml DAILY PRN PO .CONSTIPATION; Start 04/23/19 at 14:30 Bisacodyl (Dulcolax Supp) 10 mg DAILY PRN [place] .CONSTIPATION; Start 04/23/19 at 14:30 Famotidine (Pepcid Iv) 20 mg DAILY IV Last administered on 04/23/19at 18:33; Admin Dose 20 MG; Start 04/23/19 at 15:00 Hydralazine HCl (Apresoline) 10 mg Q4H PRN IV sbp>160 Last administered on 04/23/19at 15:45; Admin Dose 10 MG; Start 04/23/19 at 14:30 Hydromorphone HCl (Dilaudid) 1 mg Q3H PRN IV SEVERE PAIN LEVEL 7-10 Last administered on 04/24/19at 01:54; Admin Dose 1 MG; Start 04/23/19 at 16:30 Amlodipine Besylate (Norvasc) 5 mg BID PO Last administered on 04/23/19at 20:08; Admin Dose 5 MG; Start 04/23/19 at 21:00 Clonidine (Catapres) 0.1 mg Q4H PRN PO sbp>160 Last administered on 04/23/19at 16:59; Admin Dose 0.1 MG; Start 04/23/19 at 16:30 Tamsulosin HCl (Flomax) 0.4 mg HS PO Last administered on 04/23/19 20:07; Admin Dose 0.4 MG; Start 04/23/19 at 21:00 Ceftriaxone Sodium 50 ml @ 100 mls/hr Q24H IVPB Last administered on 04/23/19 20:07; Admin Dose 100 MLS/HR; Start 04/23/19 at 20:00 Allergies: Coded Allergies: No Known Allergy (Unverified , 04/23/19) Past Surgical History Past Surgical Hx: appendectomy, other (History of fracture penis) Social History Alcohol Use: none Smoking Status: Never smoker Drug Use: none Exam/Review of Systems Exam Vitals Vital Signs Date Temp Pulse Resp B/P (MAP) Pulse Ox O2 O2 Flow FiO2 Time Delivery Rate 04/24/19 98.4 69 16 164/89 96 Room Air 08:25 (114) Intake and Output 04/23/19 04/23/19 04/24/19 1515:00 23:00 07:00 IntakeIntake Total 250 ml 1000 ml OutputOutput Total 150 ml 1100 ml BalanceBalance 100 ml -100 ml Constitutional: alert; No oriented, No well developed, No non-verbal, No distress, No frail, No obese, No other Psych: No no complaints, No nl mood/affect, No anxiety, No confusion, No depression, No suicidal, No other Eyes: No nl conjunctiva, No EOMI, No nl lids, No nl sclera, No PERRL, No icteric, No fundi, disc, No other Respiratory: No clear to auscultation, No normal air movement, No congested cough, No crackles/rales, No diminished breath sounds, No intercostal retra ction, No labored breathing, No respirations, No tactile fremitus, No wheezing, No other Cardiovascular: No regular rate and rhythm, No nl pulses, No bruits, No diastolic murmur, No edema, No gallop, No irregular rhythm, No jugular venous distention (JVD), No murmurs/extra sounds, No rub, No systolic murmur, No S3, No S4, No other Gastrointestinal: tender, other (Tender left lower quadrant without rebound or peritoneal signs without mass-effect); No soft, No nl liver, spleen, No non-tender, No ascites, No bowel sounds, No distended, No firm, No hepatomegaly, No mass, No rebound or guarding, No splenomegaly, No surgical scars Neurological: LEGAL SUPPORT ANALYST II-XII intact, nl mental status, nl speech, nl strength Results Result Diagram: 04/24/19 0500 04/24/19 0500 Results 24hrs Laboratory Tests Test 04/23/19 12:05 04/23/19 12:51 04/23/19 19:05 04/24/19 05:00 White Blood Count 14.0 #H 10.5 # Red Blood Count 4.83 4.10 L Hemoglobin 14.5 12.1 L Hematocrit 41.8 L 35.8 L Mean Corpuscular 86.5 87.3 Volume Mean Corpuscular 30.0 29.5 Hemoglobin Mean Corpuscular 34.7 33.8 Hemoglobin Concent Red Cell 12.5 12.7 Distribution Width Platelet Count 268 223 Mean Platelet Volume 10.3 10.7 H Immature 0.500 H 0.400 Granulocytes % Neutrophils % 82.5 H 66.6 Lymphocytes % 11.9 L 23.2 Monocytes % 4.7 9.3 Eosinophils % 0.2 0.3 Basophils % 0.2 0.2 Nucleated Red Blood 0.0 0.0 Cells % Immature 0.070 H 0.040 H Granulocytes # Neutrophils # 11.5 H 7.0 Lymphocytes # 1.7 2.4 Monocytes # 0.7 1.0 H Eosinophils # 0.0 0.0 Basophils # 0.0 0.0 Nucleated Red Blood 0.0 0.0 Cells # Sodium Level 143 138 Potassium Level 4.1 3.9 Chloride Level 105 102 Carbon Dioxide Level 27 26 Anion Gap 11 10 Blood Urea Nitrogen 19 25 H Creatinine 1.40 H 1.87 H Est Glomerular 54 L 39 L Filtrat Rate mL/min Glucose Level 138 102 Calcium Level 9.1 8.7 Total Bilirubin 0.3 0.5 Direct Bilirubin 0.00 0.00 Indirect Bilirubin 0.3 0.5 Aspartate Amino 32 25 Transf (AST/SGOT) Alanine 33 27 Aminotransferase (AL T/SGPT) Alkaline Phosphatase 93 58 Total Protein 8.3 H 6.3 # Albumin 4.7 3.7 # Globulin 3.60 H 2.60 Albumin/Globulin 1.30 1.42 Ratio Lipase 69 Bedside Urine pH 7.0 (LAB) Bedside Urine 1+ H Protein (LAB) Bedside Urine 0.1% H Glucose (UA) Bedside Urine Negative Ketones (LAB) Bedside Urine Blood 2+ H Bedside Urine Negative Nitrite (LAB) Bedside Urine Negative Leukocyte Esterase (L Prothrombin Time 11.7 L Prothrombin Time 0.9 Ratio INR International 0.85 Normalized Ratio Activated 28.0 Partial Thromboplast Time Hemoglobin A1c 5.7 Phosphorus Level 5.8 H Magnesium Level 2.1 Triglycerides Level 145 Cholesterol Level 169 LDL Cholesterol, 105 Calculated HDL Cholesterol 35 Cholesterol/HDL 4.8 Ratio Thyroid Stimulating 1.070 Hormone (TSH) Free Thyroxine Index 2.83 Thyroxine (T4) 9.0 Triiodothyronine 31.4 (T3) Uptake Medications Medication Current Medications Sodium Chloride 1,000 ml @ 80 mls/hr [id number] IV Last administered on 04/24/19at 06:07; Admin Dose 80 MLS/HR; Start 04/23/19 at 14:29 IV Flush (NS 3 ml) 3 ml PER PROTOCOL IV ; Start 04/23/19 at 14:30 Ondansetron HCl (Zofran Inj) 4 mg Q6H PRN IV NAUSEA/VOMITING Last administered on 04/23/19at 17:02; Admin Dose 4 MG; Start 04/23/19 at 14:30 Acetaminophen (Tylenol Tab) 650 mg Q6H PRN PO .PAIN 1-3 OR TEMP; Start 04/23/19 at 14:30 Acetaminophen (Tylenol Supp) 650 mg Q6H PRN [place] .PAIN 1-3 OR TEMP; Start 04/23/19 at 14:30 Acetaminophen/ Hydrocodone Bitart ([place] (5/325)) 1 tab Q6H PRN PO .MOD PAIN 4- 6; Start 04/23/19 at 14:30 Docusate Sodium (Colace) 100 mg Q12H PRN PO .CONSTIPATION; Start 04/23/19 at 14:30 Magnesium Hydroxide (Milk Of Mag) 30 ml DAILY PRN PO .CONSTIPATION; Start 04/23/19 at 14:30 Bisacodyl (Dulcolax Supp) 10 mg DAILY PRN [place] .CONSTIPATION; Start 04/23/19 at 14:30 Famotidine (Pepcid Iv) 20 mg DAILY IV Last administered on 04/23/19 18:33; Admin Dose 20 MG; Start 04/23/19 at 15:00 Hydralazine HCl (Apresoline) 10 mg Q4H PRN IV sbp>160 Last administered on 04/23/19at 15:45; Admin Dose 10 MG; Start 04/23/19 at 14:30 Hydromorphone HCl (Dilaudid) 1 mg Q3H PRN IV SEVERE PAIN LEVEL 7-10 Last administered on 04/24/19 01:54; Admin Dose 1 MG; Start 04/23/19 at 16:30 Amlodipine Besylate (Norvasc) 5 mg BID PO Last administered on 04/23/19 20:08; Admin Dose 5 MG; Start 04/23/19 at 21:00 Clonidine (Catapres) 0.1 mg Q4H PRN PO sbp>160 Last administered on 04/23/19at 16:59; Admin Dose 0.1 MG; Start 04/23/19 at 16:30 Tamsulosin HCl (Flomax) 0.4 mg HS PO Last administered on 04/23/19 20:07; Admin Dose 0.4 MG; Start 04/23/19 at 21:00 Ceftriaxone Sodium 50 ml @ 100 mls/hr Q24H IVPB Last administered on 04/23/19 20:07; Admin Dose 100 MLS/HR; Start 04/23/19 at 20:00 SANNA TERRY Apr 24, 2019 08:54
[2019-04-24] MEDS: FAMOTIDINE 20 MG INJ IV SCH (09:44)
[2019-04-24] MEDS: AMLODIPINE 5 MG TAB PO SCH (09:45)
--- NOTE | 2019-04-24 13:35 | PN ---
Date/Time of Note Date/Time of Note DATE: 04/24/19 TIME: 13:26 Assessment/Plan VTE Prophylaxis Risk score (from [facility])>0 risk: 2 SCD applied (from [facility]): Yes Pharmacological prophylaxis: NA/contraindicated Pharm contraindication: low risk/ambulating Lines/Catheters IV C[facility] Type ([facility]): Peripheral IV Urinary Cath still in place: No Assessment/Plan Hospital Course Assessment and plan 1. Enlarged left renal stone with moderate hydroureteronephrosis. - Urology is consulted. - Continue with analgesics. - On IV hydration. - Monitor renal panel. - possible cystoscopy if not improved 2. Acute on suspect chronic kidney disease. -Likely secondary to #1. - Aircraft Design Engineer consulted. - Monitor renal panel. - Correct electrolytes as needed. 3. Hypertension. - on antihypertensives. Likely also aggravated by pain from a large renal stone. - continue with analgesics as needed. 4. Obesity. - Weight reduction was advised DISPO/PLAN: continue iv hydration and analgesics. monitor for improvement. f/u urology recommendations Discussed POC with Dr. Olivas Result Diagram: 04/24/19 0500 04/24/19 0500 Results 24hrs Laboratory Tests Test 04/23/19 19:05 04/24/19 05:00 04/24/19 12:00 Prothrombin Time 11.7 L Prothrombin Time Ratio 0.9 INR International Normalized Ratio 0.85 Activated Partial Thromboplast Time 28.0 White Blood Count 10.5 # Red Blood Count 4.10 L Hemoglobin 12.1 L Hematocrit 35.8 L Mean Corpuscular Volume 87.3 Mean Corpuscular Hemoglobin 29.5 Mean Corpuscular Hemoglobin Concent 33.8 Red Cell Distribution Width 12.7 Platelet Count 223 Mean Platelet Volume 10.7 H Immature Granulocytes % 0.400 Neutrophils % 66.6 Lymphocytes % 23.2 Monocytes % 9.3 Eosinophils % 0.3 Basophils % 0.2 Nucleated Red Blood Cells % 0.0 Immature Granulocytes # 0.040 H Neutrophils # 7.0 Lymphocytes # 2.4 Monocytes # 1.0 H Eosinophils # 0.0 Basophils # 0.0 Nucleated Red Blood Cells # 0.0 Sodium Level 138 Potassium Level 3.9 Chloride Level 102 Carbon Dioxide Level 26 Anion Gap 10 Blood Urea Nitrogen 25 H Creatinine 1.87 H Est Glomerular Filtrat Rate mL/min 39 L Glucose Level 102 Hemoglobin A1c 5.7 Calcium Level 8.7 Phosphorus Level 5.8 H Magnesium Level 2.1 Total Bilirubin 0.5 Direct Bilirubin 0.00 Indirect Bilirubin 0.5 Aspartate Amino Transf (AST/SGOT) 25 Alanine Aminotransferase (ALT/SGPT) 27 Alkaline Phosphatase 58 Total Protein 6.3 # Albumin 3.7 # Globulin 2.60 Albumin/Globulin Ratio 1.42 Triglycerides Level 145 Cholesterol Level 169 LDL Cholesterol, Calculated 105 HDL Cholesterol 35 Cholesterol/HDL Ratio 4.8 Thyroid Stimulating Hormone (TSH) 1.070 Free Thyroxine Index 2.83 Thyroxine (T4) 9.0 Triiodothyronine (T3) Uptake 31.4 Urine Color STRAW Urine Clarity CLEAR Urine pH 7.0 Urine Specific [place] 1.008 Urine Ketones NEGATIVE Urine Nitrite NEGATIVE Urine Bilirubin NEGATIVE Urine Urobilinogen NEGATIVE Urine Leukocyte Esterase NEGATIVE Urine Microscopic RBC 3 Urine Microscopic WBC 1 Urine Hemoglobin 2+ H Urine Glucose NEGATIVE Urine Total Protein NEGATIVE Subjective 24 Hr Interval Summary Free Text/Dictation still reports left flank pain Exam/Review of Systems Exam Vitals Vital Signs Date Temp Pulse Resp B/P (MAP) Pulse Ox O2 O2 Flow FiO2 Time Delivery Rate 04/24/19 98.4 69 16 164/89 96 Room Air 08:25 (114) Intake and Output 04/23/19 04/23/19 04/24/19 1515:00 23:00 07:00 IntakeIntake Total 250 ml 1000 ml OutputOutput Total 150 ml 1100 ml BalanceBalance 100 ml -100 ml Exam Constitutional: alert, oriented Head: normocephalic Neck: supple, non-tender Respiratory: clear to auscultation Cardiovascular: regular rate and rhythm Gastrointestinal: soft, tender (left flank) Neurological: FUEL HOUSE ATTENDANT II-XII intact, nl mental status, nl speech Results Results 24hrs Laboratory Tests Test 04/23/19 19:05 04/24/19 05:00 04/24/19 12:00 Prothrombin Time 11.7 L Prothrombin Time Ratio 0.9 INR International Normalized Ratio 0.85 Activated Partial Thromboplast Time 28.0 White Blood Count 10.5 # Red Blood Count 4.10 L Hemoglobin 12.1 L Hematocrit 35.8 L Mean Corpuscular Volume 87.3 Mean Corpuscular Hemoglobin 29.5 Mean Corpuscular Hemoglobin Concent 33.8 Red Cell Distribution Width 12.7 Platelet Count 223 Mean Platelet Volume 10.7 H Immature Granulocytes % 0.400 Neutrophils % 66.6 Lymphocytes % 23.2 Monocytes % 9.3 Eosinophils % 0.3 Basophils % 0.2 Nucleated Red Blood Cells % 0.0 Immature Granulocytes # 0.040 H Neutrophils # 7.0 Lymphocytes # 2.4 Monocytes # 1.0 H Eosinophils # 0.0 Basophils # 0.0 Nucleated Red Blood Cells # 0.0 Sodium Level 138 Potassium Level 3.9 Chloride Level 102 Carbon Dioxide Level 26 Anion Gap 10 Blood Urea Nitrogen 25 H Creatinine 1.87 H Est Glomerular Filtrat Rate mL/min 39 L Glucose Level 102 Hemoglobin A1c 5.7 Calcium Level 8.7 Phosphorus Level 5.8 H Magnesium Level 2.1 Total Bilirubin 0.5 Direct Bilirubin 0.00 Indirect Bilirubin 0.5 Aspartate Amino Transf (AST/SGOT) 25 Alanine Aminotransferase (ALT/SGPT) 27 Alkaline Phosphatase 58 Total Protein 6.3 # Albumin 3.7 # Globulin 2.60 Albumin/Globulin Ratio 1.42 Triglycerides Level 145 Cholesterol Level 169 LDL Cholesterol, Calculated 105 HDL Cholesterol 35 Cholesterol/HDL Ratio 4.8 Thyroid Stimulating Hormone (TSH) 1.070 Free Thyroxine Index 2.83 Thyroxine (T4) 9.0 Triiodothyronine (T3) Uptake 31.4 Urine Color STRAW Urine Clarity CLEAR Urine pH 7.0 Urine Specific [place] 1.008 Urine Ketones NEGATIVE Urine Nitrite NEGATIVE Urine Bilirubin NEGATIVE Urine Urobilinogen NEGATIVE Urine Leukocyte Esterase NEGATIVE Urine Microscopic RBC 3 Urine Microscopic WBC 1 Urine Hemoglobin 2+ H Urine Glucose NEGATIVE Urine Total Protein NEGATIVE Medications Medication Current Medications Sodium Chloride 1,000 ml @ 80 mls/hr [id number] IV Last administered on 04/24/19at 06:07; Admin Dose 80 MLS/HR; Start 04/23/19 at 14:29 IV Flush (NS 3 ml) 3 ml PER PROTOCOL IV ; Start 04/23/19 at 14:30 Ondansetron HCl (Zofran Inj) 4 mg Q6H PRN IV NAUSEA/VOMITING Last administered on 04/23/19at 17:02; Admin Dose 4 MG; Start 04/23/19 at 14:30 Acetaminophen (Tylenol Tab) 650 mg Q6H PRN PO .PAIN 1-3 OR TEMP; Start 04/23/19 at 14:30 Acetaminophen (Tylenol Supp) [address] .PAIN 1-3 OR TEMP; Start 04/23/19 at 14:30 Acetaminophen/ Hydrocodone Bitart ([place] (5/325)) 1 tab Q6H PRN PO .MOD PAIN 4- 6; Start 04/23/19 at 14:30 Docusate Sodium (Colace) 100 mg Q12H PRN PO .CONSTIPATION; Start 04/23/19 at 14:30 Magnesium Hydroxide (Milk Of Mag) 30 ml DAILY PRN PO .CONSTIPATION; Start 04/23/19 at 14:30 Bisacodyl (Dulcolax Supp) [address] .CONSTIPATION; Start 04/23/19 at 14:30 Famotidine (Pepcid Iv) 20 mg DAILY IV Last administered on 04/24/19 09:44; Admin Dose 20 MG; Start 04/23/19 at 15:00 Hydralazine HCl (Apresoline) 10 mg Q4H PRN IV sbp>160 Last administered on 04/23/19 15:45; Admin Dose 10 MG; Start 04/23/19 at 14:30 Hydromorphone HCl (Dilaudid) 1 mg Q3H PRN IV SEVERE PAIN LEVEL 7-10 Last administered on 04/24/19 01:54; Admin Dose 1 MG; Start 04/23/19 at 16:30 Amlodipine Besylate (Norvasc) 5 mg BID PO Last administered on 04/24/19 09:45; Admin Dose 5 MG; Start 04/23/19 at 21:00 Clonidine (Catapres) 0.1 mg Q4H PRN PO sbp>160 Last administered on 04/23/19 16:59; Admin Dose 0.1 MG; Start 04/23/19 at 16:30 Tamsulosin HCl (Flomax) 0.4 mg HS PO Last administered on 04/23/19 20:07; Admin Dose 0.4 MG; Start 04/23/19 at 21:00 Ceftriaxone Sodium 50 ml @ 100 mls/hr Q24H IVPB Last administered on 04/23/19 20:07; Admin Dose 100 MLS/HR; Start 04/23/19 at 20:00 Hydralazine HCl (Apresoline) 10 mg Q8 PO Last administered on 04/24/19 09:45; Admin Dose 10 MG; Start 04/24/19 at 09:30 JUDI AYALA NP Apr 24, 2019 13:35
--- NOTE | 2019-04-24 14:00 | CONS ---
Consult Date/Type/Reason Admit Date/Time Apr 23, 2019 at 14:02 Initial Consult Date 04/23/19 Type of Consultation: Urology Reason for Consultation Distal left ureteral stone Requesting Provider: JOSE LUIS EMMANUEL MD Date/Time of Note DATE: 04/24/19 TIME: 13:57 Subjective Continues to have pain in the left flank and left lower quadrant Objective Vitals Vital Signs Date Temp Pulse Resp B/P (MAP) Pulse Ox O2 O2 Flow FiO2 Time Delivery Rate 04/24/19 98.4 69 16 164/89 96 Room Air 08:25 (114) Intake and Output 04/23/19 04/23/19 04/24/19 1414:59 22:59 06:59 IntakeIntake Total 250 ml 1000 ml OutputOutput Total 150 ml 1100 ml BalanceBalance 100 ml -100 ml Exam He does have left flank tenderness and left lower quadrant tenderness. Results/Medications Result Diagram: 04/24/19 0500 04/24/19 0500 Results 24 hrs Laboratory Tests Test 04/23/19 19:05 04/24/19 05:00 04/24/19 12:00 Prothrombin Time 11.7 L Prothrombin Time Ratio 0.9 INR International Normalized Ratio 0.85 Activated Partial Thromboplast Time 28.0 White Blood Count 10.5 # Red Blood Count 4.10 L Hemoglobin 12.1 L Hematocrit 35.8 L Mean Corpuscular Volume 87.3 Mean Corpuscular Hemoglobin 29.5 Mean Corpuscular Hemoglobin Concent 33.8 Red Cell Distribution Width 12.7 Platelet Count 223 Mean Platelet Volume 10.7 H Immature Granulocytes % 0.400 Neutrophils % 66.6 Lymphocytes % 23.2 Monocytes % 9.3 Eosinophils % 0.3 Basophils % 0.2 Nucleated Red Blood Cells % 0.0 Immature Granulocytes # 0.040 H Neutrophils # 7.0 Lymphocytes # 2.4 Monocytes # 1.0 H Eosinophils # 0.0 Basophils # 0.0 Nucleated Red Blood Cells # 0.0 Sodium Level 138 Potassium Level 3.9 Chloride Level 102 Carbon Dioxide Level 26 Anion Gap 10 Blood Urea Nitrogen 25 H Creatinine 1.87 H Est Glomerular Filtrat Rate mL/min 39 L Glucose Level 102 Hemoglobin A1c 5.7 Calcium Level 8.7 Phosphorus Level 5.8 H Magnesium Level 2.1 Total Bilirubin 0.5 Direct Bilirubin 0.00 Indirect Bilirubin 0.5 Aspartate Amino Transf (AST/SGOT) 25 Alanine Aminotransferase (ALT/SGPT) 27 Alkaline Phosphatase 58 Total Protein 6.3 # Albumin 3.7 # Globulin 2.60 Albumin/Globulin Ratio 1.42 Triglycerides Level 145 Cholesterol Level 169 LDL Cholesterol, Calculated 105 HDL Cholesterol 35 Cholesterol/HDL Ratio 4.8 Thyroid Stimulating Hormone (TSH) 1.070 Free Thyroxine Index 2.83 Thyroxine (T4) 9.0 Triiodothyronine (T3) Uptake 31.4 Urine Color STRAW Urine Clarity CLEAR Urine pH 7.0 Urine Specific [place] 1.008 Urine Ketones NEGATIVE Urine Nitrite NEGATIVE Urine Bilirubin NEGATIVE Urine Urobilinogen NEGATIVE Urine Leukocyte Esterase NEGATIVE Urine Microscopic RBC 3 Urine Microscopic WBC 1 Urine Hemoglobin 2+ H Urine Random Creatinine 50.65 Urine Random Sodium 67 Urine Glucose NEGATIVE Urine Total Protein 25.0 H Home Meds Discontinued Scripts Hydralazine Hcl* (Hydralazine Hcl*) 50 Mg Tab, 50 MG PO Q6H PRN for ELEVATED SYSTOLIC BP, #60 TAB Prov:MILLY ZIMMER 04/19/18 Medications Current Medications Sodium Chloride 1,000 ml @ 100 mls/hr Q10H IV Last administered on 04/24/19at 06:07; Admin Dose 80 MLS/HR; Start 04/23/19 at 14:29 IV Flush (NS 3 ml) 3 ml PER PROTOCOL IV ; Start 04/23/19 at 14:30 Ondansetron HCl (Zofran Inj) 4 mg Q6H PRN IV NAUSEA/VOMITING Last administered on 04/23/19at 17:02; Admin Dose 4 MG; Start 04/23/19 at 14:30 Acetaminophen (Tylenol Tab) 650 mg Q6H PRN PO .PAIN 1-3 OR TEMP; Start 04/23/19 at 14:30 Acetaminophen (Tylenol Supp) 650 mg Q6H PRN IN .PAIN 1-3 OR TEMP; Start 04/23/19 at 14:30 Acetaminophen/ Hydrocodone Bitart ([place] (5/325)) 1 tab Q6H PRN PO .MOD PAIN 4-6; Start 04/23/19 at 14:30 Docusate Sodium (Colace) 100 mg Q12H PRN PO .CONSTIPATION; Start 04/23/19 at 14:30 Magnesium Hydroxide (Milk Of Mag) 30 ml DAILY PRN PO .CONSTIPATION; Start 04/23/19 at 14:30 Bisacodyl (Dulcolax Supp) 10 mg DAILY PRN IN .CONSTIPATION; Start 04/23/19 at 14:30 Famotidine (Pepcid Iv) 20 mg DAILY IV Last administered on 04/24/19 09:44; Admin Dose 20 MG; Start 04/23/19 at 15:00 Hydralazine HCl (Apresoline) 10 mg Q4H PRN IV sbp>160 Last administered on 04/23/19 15:45; Admin Dose 10 MG; Start 04/23/19 at 14:30 Hydromorphone HCl (Dilaudid) 1 mg Q3H PRN IV SEVERE PAIN LEVEL 7-10 Last administered on 04/24/19 13:42; Admin Dose 1 MG; Start 04/23/19 at 16:30 Amlodipine Besylate (Norvasc) 5 mg BID PO Last administered on 04/24/19 09:45; Admin Dose 5 MG; Start 04/23/19 at 21:00 Clonidine (Catapres) 0.1 mg Q4H PRN PO sbp>160 Last administered on 04/23/19 16:59; Admin Dose 0.1 MG; Start 04/23/19 at 16:30 Tamsulosin HCl (Flomax) 0.4 mg HS PO Last administered on 04/23/19 20:07; Admin Dose 0.4 MG; Start 04/23/19 at 21:00 Ceftriaxone Sodium 50 ml @ 100 mls/hr Q24H IVPB Last administered on 04/23/19 20:07; Admin Dose 100 MLS/HR; Start 04/23/19 at 20:00 Hydralazine HCl (Apresoline) 10 mg Q8 PO Last administered on 04/24/19 09:45; Admin Dose 10 MG; Start 04/24/19 at 09:30 Imaging KUB did not show the stone over the left ureterovesical junction Assessment/Plan Hospital Course (Demo Recall) 48-year-old male presented to the emergency room with severe left flank pain with nausea and vomiting. He also had constant urge to urinate and urinate small amount. He underwent a CT scan of the abdomen and pelvis and that showed a 7.2 mm stone within the left ureterovesical junction. Denies any prior history of kidney stones. There is no fever or chills and no gross hematuria. Patient continues to have pain today and the KUB did not show the stone over the left ureterovesical junction and that could be because of overlying intestines. Since the stone is just at the ureterovesical junction we will give him the chance and see if he is able to pass it. Strain the urine, give him pain medications and tamsulosin and do repeat the KUB in a.m. If his pain persist and he does not pass it and he continues to have pain we could do cystoscopy and left ureteroscopy and laser lithotripsy and inserted JJ stent. VENANCIO HILL MD Apr 24, 2019 14:00
[2019-04-24] MEDS: hydrALAzine 20 MG INJ IV PRN ×2 (15:12→20:52)
[2019-04-24] MEDS ORDERED: LABETALOL HCL 20MG INJ IV ONE (19:15)
[2019-04-24] MEDS: CEFTRIAXONE 1 GM/NS 50 ML IVPB SCH (19:44)
--- NOTE | 2019-04-24 20:23 | CONS ---
DATE OF ADMISSION: 04/23/2019 DATE OF CONSULTATION: 04/24/2019 TYPE OF CONSULTATION: Nephrology. REASON FOR CONSULTATION: Acute kidney injury. REQUESTING PHYSICIAN: Consult referral was by nurse practitioner Yovanny. HISTORY OF PRESENT ILLNESS: This is a 48-year-old male with a past medical history of hypertension w ho presents to the [facility] with increased left flank pain. The patient states h e started having left flank pain in the morning associated with dysuria. The patient stated the pain radiated to his pelvic area. The patient as a result of the symptoms not improving, presented to [facility] emergency room. The patient had a CT scan of the abdomen and pelvis which showed evidence of an en larged left kidney, hydroureteronephrosis secondary 7.2 mm stone in the left ureterovesicular junctio n. The patient started on IV fluids, antibiotic therapy and admitted to med-surg. In terms of patient's renal history, the patient denies any prior history of chronic kidney disease, acute kidney injury, hemoptysis, hematemesis or hematochezia. PAST MEDICAL HISTORY: History of hypertension. PAST SURGICAL HISTORY: History of appendectomy. FAMILY HISTORY: No family history of kidney disease. SOCIAL HISTORY: Does not drink, smoke, do drugs. MEDICATIONS: The patient's medications have been reviewed. ALLERGIES: Have been reviewed. No known drug allergies. REVIEW OF SYSTEMS: A 14-point review of systems conducted. Pertinent positives stated in HPI, other barfield negative. PHYSICAL EXAMINATION: VITAL SIGNS: Blood pressure 164/89, respirations 16, pulse 69, temperature 98.4. HEENT: Head is normocephalic. NECK: Supple. HEART: Regular rate. LUNGS: Show diminished breath sounds at the base. ABDOMEN: Soft, nontender to palpation without rebound or guarding. EXTREMITIES: Negative for clubbing, cyanosis, no edema. DERMATOLOGIC: No rashes. MUSCULOSKELETAL: No joint effusions. NEUROLOGIC: No focal deficits. LABORATORY DATA: Has been reviewed. ASSESSMENT AND PLAN: This is a 48-year-old male who presents with: 1. Nonoliguric acute kidney injury with previous baseline creatinine around 1.1 mg/dL. Etiology of acute kidney injury is secondary to obstructive uropathy, hemodynamics, NSAID use. The patient's CT scan and renal ultrasound shows severe left-sided mild hydroureteronephrosis secondary to UVJ stone. The patient appears to be in injury phase of acute kidney injury as renal function has declined in l ast 24 hours. Recommendation at this point is to continue current medical management. Continue IV h ydration. Will recheck a UA with microanalysis. Will check urine electrolytes. Would discontinue a ll NSAIDs. Otherwise, continue supportive care, renally dose all meds, avoid nephrotoxins. 2. Anemia. Continue to monitor hemoglobin and hematocrit levels. 3. ____. Monitor calcium and phosphorus levels. 4. Left-sided hydroureteronephrosis secondary to UVJ stone. The patient is currently on IV hydratio n. Will continue. Follow up with urology. The patient may require cystoscopy if there is no signif icant improvement. Continue Flomax. 5. Hypertension. Continue current blood pressure regimen. 6. Obesity. Continue dietary modification. 7. Systemic inflammatory response syndrome. Continue current antibiotic regimen. Thank you Yovanny for this interesting consult. It will be a pleasure to follow patient with you th roughout the hospital course. Dictated By: ELICIA AZUL DO NR/NTS Conf#: [id number] DID#: [id number] CC: DEVANTE ROSADO MD;*EndCC*
[2019-04-24] MEDS: TAMSULOSIN (SR) 0.4 MG CAP PO SCH (20:49)
[2019-04-24] MEDS: AMLODIPINE 10 MG TAB PO SCH (20:49)
[2019-04-25] VITALS (25 sets, daily range): BP systolic 103–175; BP diastolic 66–95; PULSE 67–107; RESP 12–21
[2019-04-25] MEDS: SOD CHLORIDE 0.9% 1,000 ML IV SCH ×5 (01:29→21:20)
[2019-04-25] MEDS: HYDROmorphONE 1 MG/ML SYG IV PRN ×6 (04:41→23:30)
[2019-04-25] MEDS: FAMOTIDINE 20 MG INJ IV SCH (08:31)
[2019-04-25] MEDS: AMLODIPINE 10 MG TAB PO SCH ×2 (08:32→21:21)
[2019-04-25] MEDS: hydrALAzine 20 MG INJ IV PRN (11:53)
[2019-04-25] MEDS: ONDANSETRON 4 MG INJ IV PRN (12:28)
--- NOTE | 2019-04-25 12:38 | PN ---
DATE: 04/25/2019 SUBJECTIVE: The patient is stable, no events overnight. The patient was complaining of pain during the night. Pain medications have been given. OBJECTIVE: VITAL SIGNS: Blood pressure is 135/80, respiratory rate 20, pulse 70, temperature 98.7. HEENT: Head is normocephalic. NECK: Supple. HEART: Regular rate. LUNGS: Show diminished breath sounds at the base. ABDOMEN: Soft, nontender to palpation without rebound or guarding. EXTREMITIES: Negative for clubbing, cyanosis, no edema. DERMATOLOGIC: No rashes. MUSCULOSKELETAL: No joint effusion. NEUROLOGIC: No change in exam. MEDICATIONS: The patient's medications are reviewed. LABORATORY DATA: Has been reviewed. IMAGING STUDIES: Have been reviewed. ASSESSMENT AND PLAN: 1. Nonoliguric acute kidney injury with previous baseline creatinine around 1.1 mg/dL. Etiology of acute kidney injury is likely secondary to obstructive uropathy, NSAID use, hemodynamics. The patien t's renal function is slowly improving with IV hydration. At this point, continue current treatment plans, supportive care, renally dose all meds. Continue IV hydration. Would discontinue and avoid al l NSAIDs at this time. 2. Left-sided hydroureteronephrosis secondary to UVJ stone. The patient is currently on IV hydratio n on Flomax. We will continue to monitor. If the stone does not pass the patient may require cystos copy. We will follow up with urology. 3. Anemia. Monitor hemoglobin and hematocrit levels. 4. Mineral bone disorder, monitor calcium and phosphorus levels. 5. Hypertension. Continue current blood pressure regimen. Defer any OLLIE inhibitor or ARB at this t jyoti. 6. Obesity. Continue dietary modification. 7. SIRS. Continue to monitor. Continue antibiotic therapy. Dictated By: ELICIA RIVER/NTS Conf#: [id number] DID#: [id number]
--- NOTE | 2019-04-25 14:05 | PN ---
Date/Time of Note Date/Time of Note DATE: 04/25/19 TIME: 14:01 Assessment/Plan VTE Prophylaxis Risk score (from Ns)>0 risk: 1 SCD applied (from Ns): Yes Pharmacological prophylaxis: NA/contraindicated Pharm contraindication: low risk/ambulating Lines/Catheters [facility] (from [facility] Peripheral IV Urinary Cath still in place: No Assessment/Plan Hospital Course Assessment and plan 1. Enlarged left renal stone with moderate hydroureteronephrosis. - Urology is consulted. - Continue with analgesics. - On IV hydration. - Monitor renal panel. - possible cystoscopy if not improved 2. Acute on suspect chronic kidney disease. -Likely secondary to #1. - Stemhole Borer And Topper consulted. - Monitor renal panel - slowly improving - Correct electrolytes as needed. 3. Hypertension. - on antihypertensives - adjust medications as needed for better control - Likely also aggravated by pain from a large renal stone. continue with analgesics as needed. 4. Obesity. - Weight reduction was advised DISPO/PLAN: continue iv hydration and analgesics. appears to be improving. adjust antihypertensives as needed. d/c planning in progress Discussed POC with Dr. Olivas Result Diagram: 04/24/19 0500 04/25/19 0607 Results 24hrs Laboratory Tests Test 04/25/19 06:07 Sodium Level 141 Potassium Level 3.7 Chloride Level 106 Carbon Dioxide Level 25 Anion Gap 10 Blood Urea Nitrogen 25 H Creatinine 1.46 H Est Glomerular Filtrat Rate mL/min 52 L Glucose Level 114 Calcium Level 8.7 Phosphorus Level 4.4 Magnesium Level 2.3 Subjective 24 Hr Interval Summary Free Text/Dictation patient reports left flank pain, little less today Exam/Review of Systems Exam Vitals Vital Signs Date Temp Pulse Resp B/P (MAP) Pulse Ox O2 O2 Flow FiO2 Time Delivery Rate 04/25/19 98.6 77 18 175/91 95 11:43 (119) 04/25/19 Nasal 03:49 Cannula Intake and Output 04/24/19 04/24/19 04/25/19 1515:00 23:00 07:00 IntakeIntake Total 560 ml 2210 ml 850 ml OutputOutput Total 1500 ml 2500 ml 1000 ml BalanceBalance -940 ml -290 ml -150 ml Constitutional: alert, oriented Psych: nl mood/affect Respiratory: clear to auscultation, normal air movement Cardiovascular: regular rate and rhythm Gastrointestinal: soft, tender (left flank, but less ) Neurological: BATH STEWARD II-XII intact, nl mental status, nl speech Skin: nl turgor Results Results 24hrs Laboratory Tests Test 04/25/19 06:07 Sodium Level 141 Potassium Level 3.7 Chloride Level 106 Carbon Dioxide Level 25 Anion Gap 10 Blood Urea Nitrogen 25 H Creatinine 1.46 H Est Glomerular Filtrat Rate mL/min 52 L Glucose Level 114 Calcium Level 8.7 Phosphorus Level 4.4 Magnesium Level 2.3 Medications Medication Current Medications Sodium Chloride 1,000 ml @ 100 mls/hr Q10H IV Last administered on 04/25/19at 04:42; Admin Dose 100 MLS/HR; Start 04/23/19 at 14:29 IV Flush (NS 3 ml) 3 ml PER PROTOCOL IV ; Start 04/23/19 at 14:30 Ondansetron HCl (Zofran Inj) 4 mg Q6H PRN IV NAUSEA/VOMITING Last administered on 04/25/19at 12:28; Admin Dose 4 MG; Start 04/23/19 at 14:30 Acetaminophen (Tylenol Tab) 650 mg Q6H PRN PO .PAIN 1-3 OR TEMP; Start 04/23/19 at 14:30 Acetaminophen (Tylenol Supp) 650 mg Q6H PRN IN .PAIN 1-3 OR TEMP; Start 04/23/19 at 14:30 Acetaminophen/ Hydrocodone Bitart ([place] (5/325)) 1 tab Q6H PRN PO .MOD PAIN 4- 6; Start 04/23/19 at 14:30 Docusate Sodium (Colace) 100 mg Q12H PRN PO .CONSTIPATION; Start 04/23/19 at 14:30 Magnesium Hydroxide (Milk Of Mag) 30 ml DAILY PRN PO .CONSTIPATION; Start 04/23/19 at 14:30 Bisacodyl (Dulcolax Supp) 10 mg DAILY PRN IN .CONSTIPATION; Start 04/23/19 at 14:30 Famotidine (Pepcid Iv) 20 mg DAILY IV Last administered on 04/25/19at 08:31; Admin Dose 20 MG; Start 04/23/19 at 15:00 Hydralazine HCl (Apresoline) 10 mg Q4H PRN IV sbp>160 Last administered on 04/25/19at 11:53; Admin Dose 10 MG; Start 04/23/19 at 14:30 Hydromorphone HCl (Dilaudid) 1 mg Q3H PRN IV SEVERE PAIN LEVEL 7-10 Last administered on 04/25/19at 12:24; Admin Dose 1 MG; Start 04/23/19 at 16:30 Clonidine (Catapres) 0.1 mg Q4H PRN PO sbp>160 Last administered on 04/24/19at 17:08; Admin Dose 0.1 MG; Start 04/23/19 at 16:30 Tamsulosin HCl (Flomax) 0.4 mg HS PO Last administered on 04/24/19 20:49; Admin Dose 0.4 MG; Start 04/23/19 at 21:00 Ceftriaxone Sodium 50 ml @ 100 mls/hr Q24H IVPB Last administered on 04/24/19at 19:44; Admin Dose 100 MLS/HR; Start 04/23/19 at 20:00 Amlodipine Besylate (Norvasc) 10 mg BID PO Last administered on 04/25/19at 08:32; Admin Dose 10 MG; Start 04/24/19 at 21:00 Hydralazine HCl (Apresoline) 25 mg Q8 PO Last administered on 04/25/19at 04:45; Admin Dose 25 MG; Start 04/24/19 at 22:00 Oxycodone/ Acetaminophen (Endocet (10/ 325)) 1 tab Q4H PRN PO MODERATE PAIN LEVEL 4-6; Start 04/24/19 at 19:00 JUDI AYALA NP Apr 25, 2019 14:05
--- NOTE | 2019-04-25 16:44 | HPN ---
Date/Time of Note Date/Time of Note DATE: 04/25/19 TIME: 16:44 Interval H&P Admission Note Pt. seen H&P reviewed: No system changes VENANCIO HILL MD Apr 25, 2019 16:44
--- NOTE | 2019-04-25 17:44 | PREAC ---
Date/Time of Note Date/Time of Note DATE: 04/25/19 TIME: 17:41 Anesthesia Eval and Record Evaluation Time Pre-Procedure Interview DATE: 04/25/19 TIME: 17:41 Age 48 Sex male NPO: 8 hrs Preoperative diagnosis left renal stone, hydroureterinephrosis Planned procedure cystoscooy, left uretroscopy kjj stent, laser lithoripsy Past Medical History Past Medical History: Includes Cardio: HTN Renal: CKD GI: Obesity Surgery & Anesthesia Issues No known issue Meds Anticoagulation: No Beta Angela within 24 hr: No Reason Beta Angela not given: Pt. not on B-Angela Discontinued Scripts Hydralazine Hcl* (Hydralazine Hcl*) 50 Mg Tab, 50 MG PO Q6H PRN for ELEVATED SYSTOLIC BP, #60 TAB Prov:MILLY ZIMMER 04/19/18 Current Medications Sodium Chloride 1,000 ml @ 100 mls/hr Q10H IV Last administered on 04/25/19at 15:36; Admin Dose 100 MLS/HR; Start 04/23/19 at 14:29 IV Flush (NS 3 ml) 3 ml PER PROTOCOL IV ; Start 04/23/19 at 14:30 Ondansetron HCl (Zofran Inj) 4 mg Q6H PRN IV NAUSEA/VOMITING Last administered on 04/25/19at 12:28; Admin Dose 4 MG; Start 04/23/19 at 14:30 Acetaminophen (Tylenol Tab) 650 mg Q6H PRN PO .PAIN 1-3 OR TEMP; Start 04/23/19 at 14:30 Acetaminophen (Tylenol Supp) 650 mg Q6H PRN [place] .PAIN 1-3 OR TEMP; Start 04/23/19 at 14:30 Acetaminophen/ Hydrocodone Bitart ([place] (5/325)) 1 tab Q6H PRN PO .MOD PAIN 4- 6; Start 04/23/19 at 14:30 Docusate Sodium (Colace) 100 mg Q12H PRN PO .CONSTIPATION; Start 04/23/19 at 14:30 Magnesium Hydroxide (Milk Of Mag) 30 ml DAILY PRN PO .CONSTIPATION; Start 04/23/19 at 14:30 Bisacodyl (Dulcolax Supp) 10 mg DAILY PRN [place] .CONSTIPATION; Start 04/23/19 at 14:30 Famotidine (Pepcid Iv) 20 mg DAILY IV Last administered on 04/25/19 08:31; Admin Dose 20 MG; Start 04/23/19 at 15:00 Hydralazine HCl (Apresoline) 10 mg Q4H PRN IV sbp>160 Last administered on 04/25/19 11:53; Admin Dose 10 MG; Start 04/23/19 at 14:30 Hydromorphone HCl (Dilaudid) 1 mg Q3H PRN IV SEVERE PAIN LEVEL 7-10 Last administered on 04/25/19 17:20; Admin Dose 1 MG; Start 04/23/19 at 16:30 Clonidine (Catapres) 0.1 mg Q4H PRN PO sbp>160 Last administered on 04/24/19 17:08; Admin Dose 0.1 MG; Start 04/23/19 at 16:30 Tamsulosin HCl (Flomax) 0.4 mg HS PO Last administered on 04/24/19 20:49; Admin Dose 0.4 MG; Start 04/23/19 at 21:00 Ceftriaxone Sodium 50 ml @ 100 mls/hr Q24H IVPB Last administered on 04/24/19 19:44; Admin Dose 100 MLS/HR; Start 04/23/19 at 20:00 Amlodipine Besylate (Norvasc) 10 mg BID PO Last administered on 04/25/19 08:32; Admin Dose 10 MG; Start 04/24/19 at 21:00 Hydralazine HCl (Apresoline) 25 mg Q8 PO Last administered on 04/25/19 04:45; Admin Dose 25 MG; Start 04/24/19 at 22:00 Oxycodone/ Acetaminophen (Endocet (10/ 325)) 1 tab Q4H PRN PO MODERATE PAIN LEVEL 4-6; Start 04/24/19 at 19:00 Meds reviewed: Yes Allergies Coded Allergies: No Known Allergy (Unverified , 04/23/19) Allergies Reviewed: Yes Labs/Studies Labs Reviewed: Reviewed by anesthesiologist Result Diagram: 04/24/19 0500 04/25/19 0607 Laboratory Tests 04/25/19 06:07 test: N/A Studies: ECG, CXR (nl) Pre-procedure Exam Last vitals Vital Signs Date Temp Pulse Resp B/P (MAP) Pulse Ox O2 O2 Flow FiO2 Time Delivery Rate 04/25/19 75 16:00 04/25/19 99.1 16 135/77 96 15:16 (96) 04/25/19 Nasal 03:49 Cannula Airway: Adequate mouth opening Mallampati: Mallampati II Teeth: Normal Lung: Normal Heart: Normal ASA Physical Status ASA physical status: 2 Emergency: None Planned Anesthetic General/MAC: ETT, LMA Planned Pain Management Parenteral pain med Pre-operative Attestations Prior to commencing anesthesia and surgery, the patient was re-evaluated, there was verification of: *The patient's identity *The results of appropriate recent lab work and preoperative vital signs *The above evaluation not changing prior to induction *Anesthetic plan, risk benefits, alternative and complications discussed with patient/family; questions answered; patient/family understands, accepts and wishes to proceed. JAMIL GODWIN MD Apr 25, 2019 17:44
[2019-04-25] MEDS ORDERED: DIPHENHYDRAMINE 50 MG INJ IV PRN (18:00)
[2019-04-25] MEDS ORDERED: FENTAnyl 50 MCG/ML VIAL IV PRN ×3 (18:00)
[2019-04-25] MEDS ORDERED: OXYCODONE/ACETAMINOPHEN (5/325) TAB PO PRN ×2 (18:00)
[2019-04-25] MEDS ORDERED: LABETALOL HCL 20MG INJ IV PRN (18:00)
[2019-04-25] MEDS ORDERED: MEPERIDINE 25 MG INJ IV PRN (18:00)
[2019-04-25] MEDS ORDERED: ONDANSETRON 4 MG INJ IV PRN (18:00)
[2019-04-25] MEDS ORDERED: hydrALAzine 20 MG INJ IV PRN (18:00)
[2019-04-25] MEDS ORDERED: HYDROmorphONE 1 MG/5 ML IV SYRINGE IV PRN ×3 (18:00)
[2019-04-25] MEDS ORDERED: FENTAnyl 50 MCG/ML VIAL ONE (19:30)
[2019-04-25] MEDS ORDERED: SUCCINYLCHOLINE CHLORIDE 100 MG/5 ML SYG IV ONE (19:30)
[2019-04-25] MEDS ORDERED: PROPOFOL 40 ML ONE (19:30)
[2019-04-25] MEDS ORDERED: CEFAZOLIN 1 GM INJ ONE (19:30)
[2019-04-25] MEDS ORDERED: ONDANSETRON 4 MG INJ ONE (19:30)
[2019-04-25] MEDS ORDERED: MIDAZOLAM 1 MG/ML 2 ML INJ ONE (19:30)
[2019-04-25] MEDS ORDERED: EPHEDrine 25 MG/5 ML SYG ONE ×2 (19:30→19:31)
[2019-04-25] MEDS ORDERED: METOCLOPRAMIDE 10 MG INJ ONE (19:31)
[2019-04-25] MEDS ORDERED: METOPROLOL 5 MG INJ ONE (19:31)
[2019-04-25] MEDS ORDERED: HYDROCODONE/APAP (5/325) TAB PO PRN (20:00)
--- NOTE | 2019-04-25 20:06 | OPR ---
Date/Time of Note Date/Time of Note DATE: 04/25/19 TIME: 20:00 Operative Report Procedure Date: Apr 25, 2019 Preoperative Diagnosis Distal left ureteral stone Postoperative Diagnosis Same Operation/Procedure Performed Cystoscopy, left ureteroscopy, laser lithotripsy and insertion of left ureteral JJ stent 6 [place] by 24 cm long Surgeon see signature line Train Operations Supervisor Meeta Jones Anesthesia Type: general Anesthesiologist: JAMIL GODWIN MD Estimated Blood Loss: 0 - 10 ml's Transfusion none Specimen Stone fragments Grafts/Implants none Complications none Pt Condition Post Procedure: stable Disposition: PACU Indications Distal left ureteral stone with obstruction Procedure Description Patient was brought to the operating room. General anesthesia was induced. The patient was positioned in the lithotomy position. The genital area was then prepped and draped in the usual sterile manner. Timeout was done and the patient was identified by his name, birthdate, the procedure and the side of the procedure. Sheet was given 2 g of Ancef IV at the start of the procedure. #21 [place] cystoscope sheath was introduced under direct vision through the penile urethra all the way into the bladder. The stone was seen obstructing the left ureteral orifice. The left ureteral orifice was then identified and cannulated with a 5 [place] open ended ureteral catheter. A 0.035 zip wire was passed through the lumen of the open ended catheter under fluoroscopy all the way up to the kidney. The open ended was removed and reintroduced through the second working channel. A 0.035 sensor wire was then passed through the open ended into the left ureter and advanced under fluoroscopy. It did curl a little when it hit the stone but with manipulation it was able to be advanced to the kidney. The open ended was removed. The sensor wire was used as a safety wire. The zip wire was used to advance on it the rigid ureteroscope. The rigid ure teroscope was advanced into the ureter and the stone was visualized. The zip wire was removed and the 365 m holmium laser fiber was used to break the stone into multiple pieces. These pieces were basketed with a stone basket and dropped into the bladder. Once all the fragments were basketed out of the ureter and the ureter is clear,the ureteroscope was removed. And the cystoscope was reintroduced into the bladder. The stone fragments were drained out of the bladder. The cystoscope was removed and reintroduced on the safety wire. Then the 6 [place] by 24 cm long JJ stent was advanced on the sensor wire and had it proximal end curling into the kidney and the distal end curling into the bladder. The distal end is attached to a string that was brought to the outside of the urethra and taped on the penis with 2 pieces of Tegaderm. The patient tolerated the procedure well and was transferred to the recovery room in a stable and satisfactory condition. VENANCIO HILL MD Apr 25, 2019 20:06
--- NOTE | 2019-04-25 20:18 | PAC ---
Date/Time of Note Date/Time of Note DATE: 04/25/19 TIME: 20:17 Post-Anesthesia Notes Post-Anesthesia Note Last documented vital signs Vital Signs Date Temp Pulse Resp B/P (MAP) Pulse Ox O2 O2 Flow FiO2 Time Delivery Rate 04/25/19 98.8 84 19 159/86 95 20:10 (110) 04/25/19 Mask 8.0 19:57 04/25/19 98.9 19:42 Activity: WNL Respiratory function: WNL Cardiovascular function: WNL Mental status: Baseline Pain reasonably controlled: Yes Hydration appropriate: Yes Nausea/Vomiting absent: No JAMIL GODWIN MD Apr 25, 2019 20:18
[2019-04-25] MEDS: CEFTRIAXONE 1 GM/NS 50 ML IVPB SCH (21:20)
[2019-04-25] MEDS: TAMSULOSIN (SR) 0.4 MG CAP PO SCH (21:20)
[2019-04-26] VITALS (11 sets, daily range): BP systolic 135–163; BP diastolic 77–95; PULSE 81–101; RESP 16–19
[2019-04-26] MEDS: SOD CHLORIDE 0.9% 1,000 ML IV SCH (07:21)
[2019-04-26] MEDS: AMLODIPINE 10 MG TAB PO SCH ×2 (08:34→20:28)
[2019-04-26] MEDS: FAMOTIDINE 20 MG INJ IV SCH (08:34)
--- NOTE | 2019-04-26 10:34 | PN ---
DATE: 04/26/2019 SUBJECTIVE: The patient yesterday had a cystoscopy performed. No other events noted. No hemoptysis , hematemesis, hematochezia. OBJECTIVE: VITAL SIGNS: Blood pressure is 147/80, respirations 16, pulse 93, temperature 99.2. HEENT: Head is normocephalic. NECK: Supple. HEART: Regular rate. LUNGS: Show diminished breath sounds at the base. ABDOMEN: Soft, nontender to palpation without rebound or guarding. EXTREMITIES: Negative for clubbing, cyanosis. Trace edema. DERMATOLOGIC: No rashes. MUSCULOSKELETAL: No joint effusion. NEUROLOGIC: No change in exam. MEDICATIONS: The patient's medications have been reviewed. LABORATORY DATA: Has been reviewed. IMAGING STUDIES: Have been reviewed. ASSESSMENT AND PLAN: 1. Nonoliguric acute kidney injury with previous baseline creatinine around 1.1 mg/dL. Etiology of acute kidney injury is secondary to obstructive uropathy, NSAID use, hemodynamics. The patient's re nal function is stable. Continue current treatment plan. Continue IV fluids, monitor closely. 2. Left sided hydroureteronephrosis secondary to UVJ stone. The patient is status post cystoscopy w ith stone extraction. Continue medical management. Follow up urology. Continue IV hydration, Floma x. 3. Anemia. Monitor hemoglobin and hematocrit levels. 4. Mineral bone disorder, monitor calcium and phosphorus levels. 5. Hypertension. Continue current blood pressure regimen. 6. Obesity. Continue dietary modification. 7. SIRS. Continue current antibiotic therapy. Dictated By: ELICIA AZUL DO NR/NTS Conf#: [id number] DID#: [id number] CC: DEVANTE ROSADO MD; MARLON BERGER MD; VENANCIO HILL MD;*EndCC*
[2019-04-26] MEDS: OXYCODONE/ACETAMINOPHEN (10/325) TAB PO PRN (13:26)
--- NOTE | 2019-04-26 14:46 | PN ---
Date/Time of Note Date/Time of Note DATE: 04/26/19 TIME: 14:46 Assessment/Plan VTE Prophylaxis Risk score (from Ns)>0 risk: 2 SCD applied (from Ns): Yes Lines/Catheters IV C[facility]ter Type (from [facility]): Peripheral IV Urinary Cath still in place: No Assessment/Plan Result Diagram: 04/26/19 0535 04/26/19 0535 Results 24hrs Laboratory Tests Test 04/26/19 05:35 White Blood Count 10.0 Red Blood Count 4.29 L Hemoglobin 12.9 L Hematocrit 38.1 L Mean Corpuscular Volume 88.8 Mean Corpuscular Hemoglobin 30.1 Mean Corpuscular Hemoglobin Concent 33.9 Red Cell Distribution Width 12.7 Platelet Count 219 Mean Platelet Volume 10.3 Immature Granulocytes % 0.300 Neutrophils % 67.1 Lymphocytes % 22.0 Monocytes % 10.3 Eosinophils % 0.1 Basophils % 0.2 Nucleated Red Blood Cells % 0.0 Immature Granulocytes # 0.030 Neutrophils # 6.7 Lymphocytes # 2.2 Monocytes # 1.0 H Eosinophils # 0.0 Basophils # 0.0 Nucleated Red Blood Cells # 0.0 Sodium Level 145 H Potassium Level 3.5 Chloride Level 106 Carbon Dioxide Level 26 Anion Gap 13 Blood Urea Nitrogen 26 H Creatinine 1.46 H Est Glomerular Filtrat Rate mL/min 52 L Glucose Level 102 Calcium Level 8.7 Phosphorus Level 5.1 H Magnesium Level 2.2 Exam/Review of Systems Exam Vitals Vital Signs Date Temp Pulse Resp B/P (MAP) Pulse Ox O2 O2 Flow FiO2 Time Delivery Rate 04/26/19 84 13:22 04/26/19 98.7 16 147/84 94 11:35 (105) 04/26/19 Nasal 04:18 Cannula 04/25/19 2.0 23:36 Intake and Output 04/25/19 04/25/19 04/26/19 1515:00 23:00 07:00 IntakeIntake Total 550 ml 550 ml OutputOutput Total 1650 ml 1500 ml BalanceBalance -1100 ml -950 ml Results Results 24hrs Laboratory Tests Test 04/26/19 05:35 White Blood Count 10.0 Red Blood Count 4.29 L Hemoglobin 12.9 L Hematocrit 38.1 L Mean Corpuscular Volume 88.8 Mean Corpuscular Hemoglobin 30.1 Mean Corpuscular Hemoglobin Concent 33.9 Red Cell Distribution Width 12.7 Platelet Count 219 Mean Platelet Volume 10.3 Immature Granulocytes % 0.300 Neutrophils % 67.1 Lymphocytes % 22.0 Monocytes % 10.3 Eosinophils % 0.1 Basophils % 0.2 Nucleated Red Blood Cells % 0.0 Immature Granulocytes # 0.030 Neutrophils # 6.7 Lymphocytes # 2.2 Monocytes # 1.0 H Eosinophils # 0.0 Basophils # 0.0 Nucleated Red Blood Cells # 0.0 Sodium Level 145 H Potassium Level 3.5 Chloride Level 106 Carbon Dioxide Level 26 Anion Gap 13 Blood Urea Nitrogen 26 H Creatinine 1.46 H Est Glomerular Filtrat Rate mL/min 52 L Glucose Level 102 Calcium Level 8.7 Phosphorus Level 5.1 H Magnesium Level 2.2 Medications Medication Current Medications IV Flush (NS 3 ml) 3 ml PER PROTOCOL IV ; Start 04/23/19 at 14:30 Ondansetron HCl (Zofran Inj) 4 mg Q6H PRN IV NAUSEA/VOMITING Last administered on 04/25/19at 12:28; Admin Dose 4 MG; Start 04/23/19 at 14:30 Acetaminophen (Tylenol Tab) 650 mg Q6H PRN PO .PAIN 1-3 OR TEMP; Start 04/23/19 at 14:30 Acetaminophen (Tylenol Supp) 650 mg Q6H PRN [place] .PAIN 1-3 OR TEMP; Start 04/23/19 at 14:30 Acetaminophen/ Hydrocodone Bitart ([place] (5/325)) 1 tab Q6H PRN PO .MOD PAIN 4-6; Start 04/23/19 at 14:30 Docusate Sodium (Colace) 100 mg Q12H PRN PO .CONSTIPATION; Start 04/23/19 at 14:30 Magnesium Hydroxide (Milk Of Mag) 30 ml DAILY PRN PO .CONSTIPATION Last administered on 04/26/19at 06:02; Admin Dose 30 ML; Start 04/23/19 at 14:30 Bisacodyl (Dulcolax Supp) 10 mg DAILY PRN [place] .CONSTIPATION Last administered on 04/26/19at 06:02; Admin Dose 10 MG; Start 04/23/19 at 14:30 Famotidine (Pepcid Iv) 20 mg DAILY IV Last administered on 04/26/19at 08:34; Admin Dose 20 MG; Start 04/23/19 at 15:00 Hydralazine HCl (Apresoline) 10 mg Q4H PRN IV sbp>160 Last administered on 04/25/19 11:53; Admin Dose 10 MG; Start 04/23/19 at 14:30 Hydromorphone HCl (Dilaudid) 1 mg Q3H PRN IV SEVERE PAIN LEVEL 7-10 Last administered on 04/25/19 23:30; Admin Dose 1 MG; Start 04/23/19 at 16:30 Clonidine (Catapres) 0.1 mg Q4H PRN PO sbp>160 Last administered on 04/24/19 17:08; Admin Dose 0.1 MG; Start 04/23/19 at 16:30 Tamsulosin HCl (Flomax) 0.4 mg HS PO Last administered on 04/25/19 21:20; Admin Dose 0.4 MG; Start 04/23/19 at 21:00 Ceftriaxone Sodium 50 ml @ 100 mls/hr Q24H IVPB Last administered on 04/25/19 21:20; Admin Dose 100 MLS/HR; Start 04/23/19 at 20:00 Amlodipine Besylate (Norvasc) 10 mg BID PO Last administered on 04/26/19 08:34; Admin Dose 10 MG; Start 04/24/19 at 21:00 Hydralazine HCl (Apresoline) 25 mg Q8 PO Last administered on 04/26/19 13:16; Admin Dose 25 MG; Start 04/24/19 at 22:00 Oxycodone/ Acetaminophen (Endocet (10/ 325)) 1 tab Q4H PRN PO MODERATE PAIN LEVEL 4-6 Last administered on 04/26/19 13:26; Admin Dose 1 TAB; Start 04/24/19 at 19:00 Acetaminophen/ Hydrocodone Bitart ([place] (5/325)) 1 tab Q4H PRN PO PAIN; Start 04/25/19 at 20:00 JUDI AYALA NP Apr 26, 2019 14:46
[2019-04-26] MEDS ORDERED: AMLO-147 PO (14:48)
[2019-04-26] MEDS ORDERED: OXYC-279 PO (14:48)
[2019-04-26] MEDS ORDERED: TAMS-14 PO (14:48)
[2019-04-26] MEDS ORDERED: HYDR-3671 PO (14:48)
--- NOTE | 2019-04-26 15:38 | PN ---
Date/Time of Note Date/Time of Note DATE: 04/26/19 TIME: 15:09 Assessment/Plan VTE Prophylaxis Risk score (from Ns)>0 risk: 2 SCD applied (from Nsg): Yes Lines/Catheters IV Catheter Type (from Nrs): Peripheral IV Urinary Cath still in place: No Assessment/Plan Hospital Course 1. Enlarged left renal stone with moderate hydroureteronephrosis. - Urology consulted. - Continue with analgesics. - On IV hydration. - Monitor renal panel. - patient s/p Patient is status post cystoscopy with left ureteroscopy and laser lithotripsy and insertion of left ureteral JJ stent. 2. Acute on suspect chronic kidney disease. -Likely secondary to #1. - Finishing Frame Runner consulted. - Monitor renal panel - slowly improving - Correct electrolytes as needed. 3. Hypertension. - on antihypertensives - adjust medications as needed for better control - Likely also aggravated by pain from a large renal stone. continue with analgesics as needed. 4. Obesity. - Weight reduction was advised DISPO/PLAN: Overall appears to be improving. monitor renal panel. anticipate d/c within the next 24 hours if medically stable Discussed POC with Dr. Olivas Result Diagram: 04/26/19 0535 04/26/19 0535 Results 24hrs Laboratory Tests Test 04/26/19 05:35 White Blood Count 10.0 Red Blood Count 4.29 L Hemoglobin 12.9 L Hematocrit 38.1 L Mean Corpuscular Volume 88.8 Mean Corpuscular Hemoglobin 30.1 Mean Corpuscular Hemoglobin Concent 33.9 Red Cell Distribution Width 12.7 Platelet Count 219 Mean Platelet Volume 10.3 Immature Granulocytes % 0.300 Neutrophils % 67.1 Lymphocytes % 22.0 Monocytes % 10.3 Eosinophils % 0.1 Basophils % 0.2 Nucleated Red Blood Cells % 0.0 Immature Granulocytes # 0.030 Neutrophils # 6.7 Lymphocytes # 2.2 Monocytes # 1.0 H Eosinophils # 0.0 Basophils # 0.0 Nucleated Red Blood Cells # 0.0 Sodium Level 145 H Potassium Level 3.5 Chloride Level 106 Carbon Dioxide Level 26 Anion Gap 13 Blood Urea Nitrogen 26 H Creatinine 1.46 H Est Glomerular Filtrat Rate mL/min 52 L Glucose Level 102 Calcium Level 8.7 Phosphorus Level 5.1 H Magnesium Level 2.2 Subjective 24 Hr Interval Summary Free Text/Dictation reports significantly less pain on left flank Exam/Review of Systems Exam Vitals Vital Signs Date Temp Pulse Resp B/P (MAP) Pulse Ox O2 O2 Flow FiO2 Time Delivery Rate 04/26/19 84 13:22 04/26/19 98.7 16 147/84 94 11:35 (105) 04/26/19 Nasal 04:18 Cannula 04/25/19 2.0 23:36 Intake and Output 04/25/19 04/25/19 04/26/19 1515:00 23:00 07:00 IntakeIntake Total 550 ml 550 ml OutputOutput Total 1650 ml 1500 ml BalanceBalance -1100 ml -950 ml Constitutional: alert, oriented, obese Psych: nl mood/affect Respiratory: clear to auscultation Gastrointestinal: soft Musculoskeletal: nl extremities to inspection Neurological: MANDARIN SPEAKING NANNY II-XII intact, nl mental status, nl speech Skin: nl turgor Results Results 24hrs Laboratory Tests Test 04/26/19 05:35 White Blood Count 10.0 Red Blood Count 4.29 L Hemoglobin 12.9 L Hematocrit 38.1 L Mean Corpuscular Volume 88.8 Mean Corpuscular Hemoglobin 30.1 Mean Corpuscular Hemoglobin Concent 33.9 Red Cell Distribution Width 12.7 Platelet Count 219 Mean Platelet Volume 10.3 Immature Granulocytes % 0.300 Neutrophils % 67.1 Lymphocytes % 22.0 Monocytes % 10.3 Eosinophils % 0.1 Basophils % 0.2 Nucleated Red Blood Cells % 0.0 Immature Granulocytes # 0.030 Neutrophils # 6.7 Lymphocytes # 2.2 Monocytes # 1.0 H Eosinophils # 0.0 Basophils # 0.0 Nucleated Red Blood Cells # 0.0 Sodium Level 145 H Potassium Level 3.5 Chloride Level 106 Carbon Dioxide Level 26 Anion Gap 13 Blood Urea Nitrogen 26 H Creatinine 1.46 H Est Glomerular Filtrat Rate mL/min 52 L Glucose Level 102 Calcium Level 8.7 Phosphorus Level 5.1 H Magnesium Level 2.2 Medications Medication Current Medications IV Flush (NS 3 ml) 3 ml PER PROTOCOL IV ; Start 04/23/19 at 14:30 Ondansetron HCl (Zofran Inj) 4 mg Q6H PRN IV NAUSEA/VOMITING Last administered on 04/25/19at 12:28; Admin Dose 4 MG; Start 04/23/19 at 14:30 Acetaminophen (Tylenol Tab) 650 mg Q6H PRN PO .PAIN 1-3 OR TEMP; Start 04/23/19 at 14:30 Acetaminophen (Tylenol Supp) 650 mg Q6H PRN [place] .PAIN 1-3 OR TEMP; Start 04/23/19 at 14:30 Acetaminophen/ Hydrocodone Bitart ([place] (5/325)) 1 tab Q6H PRN PO .MOD PAIN 4- 6; Start 04/23/19 at 14:30 Docusate Sodium (Colace) 100 mg Q12H PRN PO .CONSTIPATION; Start 04/23/19 at 14:30 Magnesium Hydroxide (Milk Of Mag) 30 ml DAILY PRN PO .CONSTIPATION Last administered on 04/26/19 06:02; Admin Dose 30 ML; Start 04/23/19 at 14:30 Bisacodyl (Dulcolax Supp) 10 mg DAILY PRN [place] .CONSTIPATION Last administered on 04/26/19 06:02; Admin Dose 10 MG; Start 04/23/19 at 14:30 Famotidine (Pepcid Iv) 20 mg DAILY IV Last administered on 04/26/19at 08:34; Admin Dose 20 MG; Start 04/23/19 at 15:00 Hydralazine HCl (Apresoline) 10 mg Q4H PRN IV sbp>160 Last administered on 04/25/19at 11:53; Admin Dose 10 MG; Start 04/23/19 at 14:30 Hydromorphone HCl (Dilaudid) 1 mg Q3H PRN IV SEVERE PAIN LEVEL 7-10 Last administered on 04/25/19at 23:30; Admin Dose 1 MG; Start 04/23/19 at 16:30 Clonidine (Catapres) 0.1 mg Q4H PRN PO sbp>160 Last administered on 04/24/19at 17:08; Admin Dose 0.1 MG; Start 04/23/19 at 16:30 Tamsulosin HCl (Flomax) 0.4 mg HS PO Last administered on 04/25/19at 21:20; Admin Dose 0.4 MG; Start 04/23/19 at 21:00 Ceftriaxone Sodium 50 ml @ 100 mls/hr Q24H IVPB Last administered on 04/25/19at 21:20; Admin Dose 100 MLS/HR; Start 04/23/19 at 20:00 Amlodipine Besylate (Norvasc) 10 mg BID PO Last administered on 04/26/19at 08:34; Admin Dose 10 MG; Start 04/24/19 at 21:00 Hydralazine HCl (Apresoline) 25 mg Q8 PO Last administered on 04/26/19at 13:16; Admin Dose 25 MG; Start 04/24/19 at 22:00 Oxycodone/ Acetaminophen (Endocet (10/ 325)) 1 tab Q4H PRN PO MODERATE PAIN LEVEL 4-6 Last administered on 04/26/19 13:26; Admin Dose 1 TAB; Start 04/24/19 at 19:00 Acetaminophen/ Hydrocodone Bitart ([place] (5/325)) 1 tab Q4H PRN PO PAIN; Start 04/25/19 at 20:00 JUDI AYALA NP Apr 26, 2019 15:19
--- NOTE | 2019-04-26 18:22 | CONS ---
Consult Date/Type/Reason Admit Date/Time Apr 23, 2019 at 14:02 Initial Consult Date 04/23/19 Type of Consultation: Urology Reason for Consultation Distal left ureteral stone. Requesting Provider: MARLON BERGER Date/Time of Note DATE: 04/26/19 TIME: 18:19 Subjective Patient is feeling much better. He only has pain when he urinates because of the urine refluxing through the stent into his kidney. Objective Vitals Vital Signs Date Temp Pulse Resp B/P (MAP) Pulse Ox O2 O2 Flow FiO2 Time Delivery Rate 04/26/19 83 16:00 04/26/19 98.6 16 135/87 92 15:46 (103) 04/26/19 Nasal 04:18 Cannula 04/25/19 2.0 23:36 Intake and Output 04/25/19 04/25/19 04/26/19 1515:00 23:00 07:00 IntakeIntake Total 550 ml 550 ml OutputOutput Total 1650 ml 1500 ml BalanceBalance -1100 ml -950 ml Exam Abdomen is soft. There is no flank tenderness Results/Medications Result Diagram: 04/26/19 0535 04/26/19 0535 Results 24 hrs Laboratory Tests Test 04/26/19 05:35 White Blood Count 10.0 Red Blood Count 4.29 L Hemoglobin 12.9 L Hematocrit 38.1 L Mean Corpuscular Volume 88.8 Mean Corpuscular Hemoglobin 30.1 Mean Corpuscular Hemoglobin Concent 33.9 Red Cell Distribution Width 12.7 Platelet Count 219 Mean Platelet Volume 10.3 Immature Granulocytes % 0.300 Neutrophils % 67.1 Lymphocytes % 22.0 Monocytes % 10.3 Eosinophils % 0.1 Basophils % 0.2 Nucleated Red Blood Cells % 0.0 Immature Granulocytes # 0.030 Neutrophils # 6.7 Lymphocytes # 2.2 Monocytes # 1.0 H Eosinophils # 0.0 Basophils # 0.0 Nucleated Red Blood Cells # 0.0 Sodium Level 145 H Potassium Level 3.5 Chloride Level 106 Carbon Dioxide Level 26 Anion Gap 13 Blood Urea Nitrogen 26 H Creatinine 1.46 H Est Glomerular Filtrat Rate mL/min 52 L Glucose Level 102 Calcium Level 8.7 Phosphorus Level 5.1 H Magnesium Level 2.2 Home Meds Active Scripts Hydralazine Hcl* (Hydralazine Hcl*) 25 Mg Tab, 50 MG PO Q8, #90 TAB Prov:REGIDOR,JUDI ENROLLMENT REPRESENTATIVE 04/26/19 Amlodipine Besylate* (Amlodipine Besylate*) 10 Mg Tablet, 10 MG PO BID, #60 TAB Prov:JUDI AYALA ENROLLMENT REPRESENTATIVE 04/26/19 Tamsulosin Hcl* (Flomax*) 0.4 Mg Cap.er.24h, 0.4 MG PO HS, #30 CAP Prov:JUDI AYALA ENROLLMENT REPRESENTATIVE 04/26/19 Discontinued Scripts Hydralazine Hcl* (Hydralazine Hcl*) 50 Mg Tab, 50 MG PO Q6H PRN for ELEVATED SYSTOLIC BP, #60 TAB Prov:MONSEMILLY ESCALERA 04/19/18 Medications Current Medications IV Flush (NS 3 ml) 3 ml PER PROTOCOL IV ; Start 04/23/19 at 14:30 Ondansetron HCl (Zofran Inj) 4 mg Q6H PRN IV NAUSEA/VOMITING Last administered on 04/25/19at 12:28; Admin Dose 4 MG; Start 04/23/19 at 14:30 Acetaminophen (Tylenol Tab) 650 mg Q6H PRN PO .PAIN 1-3 OR TEMP; Start 04/23/19 at 14:30 Acetaminophen (Tylenol Supp) 650 mg Q6H PRN [place] .PAIN 1-3 OR TEMP; Start 04/23/19 at 14:30 Acetaminophen/ Hydrocodone Bitart (Plummer (5/325)) 1 tab Q6H PRN PO .MOD PAIN 4- 6; Start 04/23/19 at 14:30 Docusate Sodium (Colace) 100 mg Q12H PRN PO .CONSTIPATION; Start 04/23/19 at 14:30 Magnesium Hydroxide (Milk Of Mag) 30 ml DAILY PRN PO .CONSTIPATION Last admi nistered on 04/26/19at 06:02; Admin Dose 30 ML; Start 04/23/19 at 14:30 Bisacodyl (Dulcolax Supp) 10 mg DAILY PRN [place] .CONSTIPATION Last administered on 04/26/19at 06:02; Admin Dose 10 MG; Start 04/23/19 at 14:30 Famotidine (Pepcid Iv) 20 mg DAILY IV Last administered on 04/26/19at 08:34; Admin Dose 20 MG; Start 04/23/19 at 15:00 Hydralazine HCl (Apresoline) 10 mg Q4H PRN IV sbp>160 Last administered on 04/25/19 11:53; Admin Dose 10 MG; Start 04/23/19 at 14:30 Hydromorphone HCl (Dilaudid) 1 mg Q3H PRN IV SEVERE PAIN LEVEL 7-10 Last administered on 04/25/19 23:30; Admin Dose 1 MG; Start 04/23/19 at 16:30 Clonidine (Catapres) 0.1 mg Q4H PRN PO sbp>160 Last administered on 04/24/19 17:08; Admin Dose 0.1 MG; Start 04/23/19 at 16:30 Tamsulosin HCl (Flomax) 0.4 mg HS PO Last administered on 04/25/19 21:20; Admin Dose 0.4 MG; Start 04/23/19 at 21:00 Ceftriaxone Sodium 50 ml @ 100 mls/hr Q24H IVPB Last administered on 04/25/19 21:20; Admin Dose 100 MLS/HR; Start 04/23/19 at 20:00 Amlodipine Besylate (Norvasc) 10 mg BID PO Last administered on 04/26/19 08:34; Admin Dose 10 MG; Start 04/24/19 at 21:00 Oxycodone/ Acetaminophen (Endocet (10/ 325)) 1 tab Q4H PRN PO MODERATE PAIN LEV EL 4-6 Last administered on 04/26/19 13:26; Admin Dose 1 TAB; Start 04/24/19 at 19:00 Acetaminophen/ Hydrocodone Bitart (Plummer (5/325)) 1 tab Q4H PRN PO PAIN; Start 04/25/19 at 20:00 Hydralazine HCl (Apresoline) 50 mg Q8 PO Last administered on 04/26/19 17:39; Admin Dose 50 MG; Start 04/26/19 at 15:00 Assessment/Plan Hospital Course (Demo Recall) 48-year-old male presented to the emergency room with severe left flank pain with nausea and vomiting. He also had constant urge to urinate and urinate small amount. He underwent a CT scan of the abdomen and pelvis and that showed a 7.2 mm stone within the left ureterovesical junction. Denies any prior history of kidney stones. There is no fever or chills and no gross hematuria. Patient continues to have pain and the KUB did not show the stone over the left ureterovesical junction and that could be because of overlying intestines. Patient underwent cystoscopy, left ureteroscopy, laser lithotripsy and insertion of left ureteral JJ stent on 04/25/2019. He is doing well postop. His pain is much less. He may be discharged home today and he should come to my office next Tuesday or Tuesday to remove the JJ stent. VENANCIO HILL MD Apr 26, 2019 18:22
[2019-04-26] MEDS: CEFTRIAXONE 1 GM/NS 50 ML IVPB SCH (20:27)
[2019-04-26] MEDS: TAMSULOSIN (SR) 0.4 MG CAP PO SCH (20:27)
[2019-04-26] MEDS: HYDROmorphONE 1 MG/ML SYG IV PRN (21:31)
[2019-04-27] VITALS (8 sets, daily range): BP systolic 115–153; BP diastolic 67–93; PULSE 70–78; RESP 16–18
[2019-04-27] MEDS: OXYCODONE/ACETAMINOPHEN (10/325) TAB PO PRN ×2 (06:14→14:59)
--- NOTE | 2019-04-27 07:45 | RADRPT ---
Vent Rate: 67 bpm RR Interval: 892 msec AK Interval: 155 msec QRS Duration: 87 msec QT Interval: 433 msec QTC Interval: 458 msec P-R-T [place]: 55 - 29 - 116 degrees Sinus rhythm...normal P axis, V-rate 50- 99 Probable LVH with secondary repol abnrm...multiple LVH criteria Electronically Signed By: Nathan Lora
[2019-04-27] MEDS: AMLODIPINE 10 MG TAB PO SCH (08:59)
[2019-04-27] MEDS: FAMOTIDINE 20 MG INJ IV SCH (08:59)
--- NOTE | 2019-04-27 09:45 | PN ---
DATE: 04/27/2019 SUBJECTIVE: The patient is stable. No events overnight. OBJECTIVE: VITAL SIGNS: Blood pressure is 153/89, respirations 18, pulse 74, temperature 97.5. HEENT: Head is normocephalic. NECK: Supple. HEART: Regular rate. LUNGS: Show diminished breath sounds at the base. ABDOMEN: Soft, nontender to palpation without rebound or guarding. EXTREMITIES: Negative for clubbing, cyanosis, no edema. DERMATOLOGIC: No rashes. MUSCULOSKELETAL: No joint effusion. NEUROLOGIC: No change in exam. MEDICATIONS: Reviewed. LABORATORY DATA: Reviewed. ASSESSMENT AND PLAN: 1. Nonoliguric acute kidney injury with previous baseline creatinine of 1.1 mg/dL. Etiology of acut e kidney injury is secondary to obstructive uropathy. The patient's renal function is stabilized. T he patient's stone has been removed. We will continue to monitor. Continue supportive care and abby lly dose all medications. 2. Left-sided hydroureteronephrosis secondary to UVJ stone. The patient has uropathy with stone ext raction. Continue medical management. Continue Flomax. 3. Anemia. Monitor hemoglobin and hematocrit levels. 4. Mineral bone disorder. Monitor calcium and phosphorus levels. 4. Hypertension. Continue current blood pressure regimen. 5. Obesity. Continue dietary modification. 6. Systemic inflammatory response syndrome, improved. Dictated By: ELICIA AZUL DO NR/NTS Conf#: [id number] DID#: [id number] CC: DEVANTE ROSADO MD; MRALON BERGER MD; VENANCIO HILL MD;*End*
--- NOTE | 2019-04-27 14:31 | PDOCDIS ---
Discharge Instructions DIAGNOSIS Discharge Diagnosis 1. Enlarged left renal stone with moderate hydroureteronephrosis 2. Acute on suspect chronic kidney disease. 3. Hypertension. 4. Obesity CONDITION [id number] Patient Condition: [id number] Stable FOLLOW UP/APPOINTMENTS Follow-up Plan 1. Follow up with Dr. Valentino Colon on 04.30.2019 Office Address [id number] [address] Office JUDI AYALA NP Apr 27, 2019 14:31
--- NOTE | 2019-04-27 14:46 | DS ---
Date/Time of Note Date/Time of Note DATE: 04/27/19 TIME: 14:41 Discharge Summary Admission/Discharge Info Admit Date/Time Apr 23, 2019 at 14:02 Discharge Date/Time Discharge Diagnosis 1. Enlarged left renal stone with moderate hydroureteronephrosis 2. Acute on suspect chronic kidney disease. 3. Hypertension. 4. Obesity Patient Condition: Stable Hospital Course This is a 48-year-old male with only reported past medical history of appendectomy, hypertension, came to [facility] due to reports of increased left flank pain. Patient reports that he started to have left flank pain starting this morning. He reports also having some associated dysuria. She reports the pain is on the left flank and radiates to his front pelvic area. He did come to the hospital for further evaluation. On examination he had a white count of 14.0. Urinalysis was not very suggestive of UTI. Did have abdominal pelvic imaging that did show and have enlarged left kidney with left-sided mild to moderate hydroureteronephrosis secondary to large 7.2 mm stone within the left UVJ. There is also associated left perinephric fatty stranding. Patient denies any fevers. He does report however he has been having urinary frequency for a long time (exact duration unknown). Reports he only takes medication at home for his hypertension and to his knowledge the only known medical issue he has is hypertension. Enlarged left renal stone with moderate hydroureteronephrosis. Urologist did see the patient and we did start him on IV fluids as well as analgesics. He did have cystoscopy with left ureteroscopy and laser lithotripsy and insertion of left ureteral JJ stent. He did tolerate procedure well. He did have some renal insufficiency secondary to this renal stone and we did get seam taper machine to see him. We did monitor his electrolytes and correct them as needed. Was renally dose on his medications. He is otherwise otherwise medically with antihypertensives for his high blood pressure. He was also advised weight reduction for his obesity. During his course of stay he did improve. The plan of care was discussed with the patient and patient verbalizes understanding. On the day of discharge patient was in stable condition Discussed POC with Dr. Crum Home Meds Active Scripts Oxycodone HCl/Acetaminophen (Percocet 5-325 mg Tablet) 1 Each Tablet, 1 EACH PO Q4 PRN for PAIN, #20 TAB Prov:JUDI AYALA NP 04/26/19 Hydralazine Hcl* (Hydralazine Hcl*) 25 Mg Tab, 50 MG PO Q8, #90 TAB Prov:JUDI AYALA NP 04/26/19 Amlodipine Besylate* (Amlodipine Besylate*) 10 Mg Tablet, 10 MG PO BID, #60 TAB Prov:JUDI AYALA NP 04/26/19 Tamsulosin Hcl* (Flomax*) 0.4 Mg Cap.er.24h, 0.4 MG PO HS, #30 CAP Prov:JUDI AYALA NP 04/26/19 Discontinued Scripts Hydralazine Hcl* (Hydralazine Hcl*) 50 Mg Tab, 50 MG PO Q6H PRN for ELEVATED SYSTOLIC BP, #60 TAB Prov:MILLY ZIMMER 04/19/18 Follow-up Plan 1. Follow up with Dr. Valentino Colon on 04.30.2019 Office Address [address] [facility] [address] [place] [id number] Office Primary Care Provider Care Physician No Primary Time spent on discharge: > 30 minutes (#1 GI bleed: Patient reports hematemesis as well as dark stools. Status post EGD yesterday with findings listed above. Improving overall now.) Pending Labs Laboratory Tests Test 04/27/19 05:36 White Blood Count 8.5 10^3/ul (4.8-10.8) Red Blood Count 4.22 10^6/ul (4.70-6.10) Hemoglobin 12.5 g/dl (14.0-18.0) Hematocrit 37.4 % (42.0-52.0) Mean Corpuscular Volume 88.6 fl (82.0-101.0) Mean Corpuscular Hemoglobin 29.6 pg (29.0-33.0) Mean Corpuscular Hemoglobin Concent 33.4 g/dl (32.0-37.0) Red Cell Distribution Width 12.2 % (11.5-14.5) Platelet Count 228 10^3/UL (140-415) Mean Platelet Volume 10.5 fl (7.4-10.4) Immature Granulocytes % 0.100 % (0.001-0.429) Neutrophils % 60.2 % (39.0-77.0) Lymphocytes % 27.8 % (15.0-51.0) Monocytes % 9.8 % (0.0-11.0) Eosinophils % 1.5 % (0.0-7.0) Basophils % 0.6 % (0.0-2.0) Nucleated Red Blood Cells % 0.0 /100WBC (0.0-0.0) Immature Granulocytes # 0.010 10^3/ul (0.0-0.031) Neutrophils # 5.1 10^3/ul (1.6-7.5) Lymphocytes # 2.4 10^3/ul (0.8-2.9) Monocytes # 0.8 10^3/ul (0.3-0.9) Eosinophils # 0.1 10^3/ul (0.0-0.5) Basophils # 0.1 10^3/ul (0.0-0.1) Nucleated Red Blood Cells # 0.0 10^3/ul (0.0-0.0) Sodium Level 143 mmol/L (135-144) Potassium Level 3.7 mmol/L (3.5-5.1) Chloride Level 103 mmol/L (97-110) Carbon Dioxide Level 30 mmol/L (21-31) Anion Gap 10 (5-13) Blood Urea Nitrogen 25 mg/dl (7-20) Creatinine 1.45 mg/dl (0.61-1.24) Est Glomerular Filtrat Rate mL/min 52 mL/min (>60) Glucose Level 107 mg/dl (70-220) Calcium Level 8.8 mg/dl (8.4-10.2) Phosphorus Level 3.8 mg/dl (2.5-4.9) Magnesium Level 2.4 mg/dl (1.7-2.5) JUDI AYALA NP Apr 27, 2019 14:46
== END 2019-04-27 15:10 | disposition home or self-care (01) | DRG 660 ==
LOC: E/R 11:21 → PP2 14:02 → TEL 04-24 18:58
PROVIDERS: ADMIT Internal Medicine Nephrology; ATTEND Internal Medicine
PROC: 0T778DZ Dilation of Left Ureter with Intraluminal Device, Via Natural or Artificial Opening Endoscopic (ICD-10-PCS; 2019-04-25)
PROC: 0TC78ZZ Extirpation of Matter from Left Ureter, Via Natural or Artificial Opening Endoscopic (ICD-10-PCS; principal; 2019-04-25 17:30)
DX: N13.2 Hydronephrosis with renal and ureteral calculous obstruction (principal); R65.10 Systemic inflammatory response syndrome (SIRS) of non-infectious origin without acute organ dysfunction; N17.9 Acute kidney failure, unspecified; I12.9 Hypertensive chronic kidney disease with stage 1 through stage 4 chronic kidney disease, or unspecified chronic kidney disease; N18.9 Chronic kidney disease, unspecified; Z68.35 Body mass index [BMI] 35.0-35.9, adult; E78.5 Hyperlipidemia, unspecified; E66.9 Obesity, unspecified; D64.9 Anemia, unspecified; Z90.49 Acquired absence of other specified parts of digestive tract
CPT/HCPCS: 36415; 71045; 74018; 74176; 74430; 76775; 80048; 80053; 80061; 81001; 81003; 82043; 83036; 83690; 83735; 84100; 84155; 84300; 84436; 84443; 84479; 85025; 85610; 85730; 87086; 88300; 93005; 96374; 96375; 96376; C2617; J0360; J0690; J0696; J1170; J1885; J2250; J2270; J2405; J2765; J3010; J7030